=== PATIENT | male | born 1970 | race Caucasian/White ===

== ENCOUNTER 2023-04-16 15:57 | Outpatient (REF) | payer OTHER, SELFPAY ==
--- NOTE | ~2023-04-16 | XR_ITS ---
EXAMINATION: XR CHEST CLINICAL INFORMATION: Abnormal chest radiograph (not available). COMPARISON: None available. If/when outside comparison chest radiographs become available (requested), an addendum will be issued. TECHNIQUE: Frontal and lateral views of the chest were obtained. FINDINGS: The heart, great vessels, pulmonary vasculature and mediastinum are normal. The lungs show no focal infiltrate, effusion or pneumothorax. There is no acute osseous abnormality. XR/XR chest 2V IMPRESSION: No active cardiopulmonary disease.
== END 2023-04-16 15:58 | disposition home or self-care (01) ==
LOC: HO.LAB 15:57
PROVIDERS: PCP Internal Medicine; Visit Provider Internal Medicine
DX: Z00.00 Encounter for general adult medical examination without abnormal findings (principal); L81.8 Other specified disorders of pigmentation; R93.89 Abnormal findings on diagnostic imaging of other specified body structures
CPT/HCPCS: 71046

== ENCOUNTER 2023-04-19 08:32 | Outpatient (REF) | payer OTHER, SELFPAY ==
[2023-04-19 09:05] LABS: MANUAL DIFF FLAG NO
[2023-04-19 09:20] LABS: Basophils Percent Auto 0.6 % (0-2); Eosinophils Absolute Auto 0.1 X10*3/uL (0.0-0.4); Eosinophils Percent Auto 2.1 % (0-4); Hematocrit 43.3 % (42.0-52.0); Hemoglobin 14.1 g/dl (14.0-18.0); Imm Gran Abs Auto 0.01 X10*3/uL (0.00-0.03); Imm Gran Pct Auto 0.2 % (0.0-0.4); Lymphocytes Absolute Auto 1.2 X10*3/uL (1.2-4.9); Lymphocytes Percent Auto 22.1 % (20-40); Mean Corpuscular HGB Conc 32.6 g/dl (31.0-36.0); Mean Corpuscular Volume 88.9 fL (80.0-98.0); Mean Platelet Volume 9.9 fL (9.4-12.4); Monocytes Absolute Auto 0.4 X10*3/uL (0.1-1.2); Monocytes Percent Auto 8.1 % (2-11); Neutrophils Absolute Auto 3.5 x10*3/uL (2.0-8.3); Neutrophils Percent Auto 66.9 % (45-73); Platelet Count 214 X10*3/uL (160-400); Red Blood Count 4.87 X10*6/uL (4.60-5.80); Red Cell Distribution Width 13.5 % (11.0-16.0); White Blood Count 5.2 X10*3/uL (4.8-10.8)
[2023-04-19 09:46] LABS: Alanine Aminotransferase 12 U/L (0-40); Albumin Level 4.1 g/dL (3.5-5.0); Alkaline Phosphatase 98 U/L (39-117); Anion Gap 12 (12-20); Aspartate Amino Transferase 14 U/L (5-37); Bilirubin Total 0.5 mg/dL (0.0-1.0); Blood Urea Nitrogen 14 mg/dL (9-16); Calcium 11.5 mg/dL (8.4-10.2); Carbon Dioxide 25 mmol/L (22-29); Chloride 109 mmol/L (96-108); Cholesterol 164 mg/dL (<200); Estimated Glomerular Filt Rate > 60; Glucose Random 114 mg/dL (60-115); HDL Cholesterol 45 mg/dL (>40); LDL Cholesterol Calculated 106 mg/dL (<100); Potassium 4.5 mmol/L (3.3-5.1); Sodium 141 mmol/L (135-145); Total Protein 6.4 g/dL (6.5-8.0); Triglycerides 65 mg/dL (<150)
[2023-04-19 10:15] LABS: Prostate Specific Antigen Scr 10.19 ng/mL (<0.05-4.0)
== END 2023-04-19 08:33 | disposition home or self-care (01) ==
LOC: HO.LAB 08:32
PROVIDERS: PCP Internal Medicine; Visit Provider Internal Medicine
DX: Z00.00 Encounter for general adult medical examination without abnormal findings (principal); L81.8 Other specified disorders of pigmentation; E78.00 Pure hypercholesterolemia, unspecified; Z13.31 Encounter for screening for depression; Z12.5 Encounter for screening for malignant neoplasm of prostate; Z20.2 Contact with and (suspected) exposure to infections with a predominantly sexual mode of transmission
CPT/HCPCS: 36415; 80053; 80061; 84153; 85025

== ENCOUNTER 2023-05-30 15:20 | Outpatient (AMB) | payer OTHER, SELFPAY ==
--- NOTE | 2023-05-30 15:25 | MHC.OFFVIS ---
Intake Intake Visit Reasons: Elevated PSA Intake Note: New Patient presents for initial visit for elevated psa (psa 10.19) Urology Medications: none Blood Thinner: none Deicer Tester Required: No Accompanied by: Unknown Allergies penicillin V Allergy (Unknown, Unverified 05/30/23 16:13) Unknown Penicillins [PCN] Allergy (Unknown, Unverified 05/30/23 16:13) SWELLING Medication List - Last Reconciled 05/30/23 by MARYANN SinghP-BC sulfamethoxazole-trimethoprim 800-160 mg (Bactrim DS) 1 tab PO BID 14 days HPI HPI Comments History of Present Illness Details Filemon is a very pleasant 53-year-old male patient of Dr. Riley is accompanied by his significant other at today's office visit. He presents to the office today as a new patient for an elevated PSA. When asked he reports to be doing and feeling well. He reports having had labs performed with PCP at which time he was noted to have an elevated PSA and recommendations were made for urology follow up for further assessment and evaluation. In review of patient chart it appears PSA 04/21--10.2. When asked he does endorse to a weak urinary stream over the last few years. However, he denies urinary urgency, urinary frequency, incontinence, nocturia, hematuria, dysuria, foul smelling urine, flank pain, fever, and or chills. He is happy with his current voiding parameters. Discussed at length potential causes of elevated PSA. LEIGH performed boggy prostate noted no masses or nodules palpated. Discussed treatment for prostatitis with redraw of PSA in 6 weeks. Discussed obtaining retroperitoneal ultrasound for further assessment evaluation. In review of patient's chart PCP notes noted previous history of prostate biopsy in 2013 with urology. However, patient is unsure if he had further workup with MRI and or prostate biopsy. It is unclear. It is also unclear were patient previously followed up with Urology. He is unsure if he followed up with [facility] when Urology verses [facility] Urology. Discussed attempting to obtain previous urology records for continuity of care. When asked he denies any known family history of prostate cancer. He otherwise offers no issues or concerns at this time. Review of Systems Const All systems reviewed & are unremarkable except as noted in HPI and below Physical Exam Const General: cooperative, healthy appearing, comfortable, no acute distress, well developed, alert and awake Nutritional Appearance: thin Orientation/consciousness: patient oriented x3 Limitations: no limitations HEENT Head: Yes normal to inspection, Yes normocephalic and Yes atraumatic Ears: hearing grossly normal bilaterally Eyes General: appearance normal, both eyes and all related structures Neck Neck: Yes normal visual inspection and Yes trachea midline Chest Chest palpation & inspection: normal inspection of the chest Resp Effort & Inspection: normal respiratory effort and able to speak in complete sentences Cardio Rate: regular rate GI Inspection: Yes normal to inspection Rectal Exam - Male: Yes visual inspection normal, Yes normal sphincter tone and Yes prostate abnormal (boggy prostate noted ) General: Yes no CVA tenderness Back/Spine/Pelvis Back: no CVA tenderness Skin General skin exam: no rashes or lesions noted Neuro General: patient oriented x3 Extrem General: Yes normal to inspection Psych Appearance: grossly normal and well kempt Mental Status: mental status grossly normal Speech and movement: Normal speech and movement present and Clear speech present Affect: normal affect Attitude: cooperative Thought process: Normal thought process present Thought content: Normal thought content present Insight: Good insight present (Psych) Judgement: Good judgement present (Psych) Results AMB Urinalysis, Automated UA Leukoctes 0 Amilcar/uL Last Edit by [employer] on 05/30/23 15:39 UA Nitrite Negative Last Edit by [employer] on 05/30/23 15:39 UA Urobilinogen 0.2 mg/dL Last Edit by [employer] on 05/30/23 15:39 UA Protein 0 mg/dL Last Edit by [employer] on 05/30/23 15:39 UA pH 7.5 Last Edit by [employer] on 05/30/23 15:39 UA Blood 0 Yosvany/uL Last Edit by [employer] on 05/30/23 15:39 UA Specific [place] 1.015 Last Edit by [employer] on 05/30/23 15:39 UA Ketone Negative Last Edit by [employer] on 05/30/23 15:39 UA Bilirubin 0 mg/dL Last Edit by [employer] on 05/30/23 15:39 UA Glucose 0 mg/dL Last Edit by [employer] on 05/30/23 15:39 Results Reviewed Results Reviewed: Laboratory Last Values Urine pH (Auto) 7.5 05/30/23 15:27 Specific [place] (Auto) 1.015 05/30/23 15:27 Urine Protein (Auto) 0 mg/dL 05/30/23 15:27 Glucose (UA)(Auto) 0 mg/dL 05/30/23 15:27 Urine Ketones (Auto) Negative 05/30/23 15:27 Urine Blood (Auto) 0 Yosvany/uL 05/30/23 15:27 Urine Nitrite (Auto) Negative 05/30/23 15:27 Urine Bilirubin (Auto) 0 mg/dL 05/30/23 15:27 Urine Urobilinogen (Auto) 0.2 mg/dL 05/30/23 15:27 Leukocyte Esterase (Auto) 0 Amilcar/uL 05/30/23 15:27 Assessment & Plan Assessment & Plan (1) Elevated PSA: Code(s): R97.20 - Elevated prostate specific antigen [PSA] (2) Weak urinary stream: Code(s): R39.12 - Poor urinary stream (3) Prostatitis: Code(s): N41.9 - Inflammatory disease of prostate, unspecified Plan In office urinalysis results reviewed with the patient today; as noted above. Discussed at length potential causes of elevated PSA. LEIGH performed boggy prostate noted. Discuss treatment for prostatitis. Start Bactrim as discussed and prescribed. Will obtain retroperitoneal ultrasound for further assessment evaluation. Will obtain redraw of PSA in 6 weeks. Discussed possible prostate biopsy in the near future if PSA continues to be elevated Discussed, educated, and encouraged on the importance of drinking plenty of water daily. Follow-up in 2 months with imaging and labs to be completed prior; or sooner with any issues, concerns, and or questions. Orders: Orders AMB Urinalysis Automated 05/30/23 Z13.9 - Encounter for screening, unspecified US retroperitoneal comp 05/30/23 R39.12 - Poor urinary stream, R97.20 - Elevated prostate specific antigen [PSA] Prostate Specific Antigen 6 Weeks R97.20 - Elevated prostate specific antigen [PSA] Medications: New sulfamethoxazole-trimethoprim 800-160 mg (Bactrim DS) 1 tab PO BID 14 days 28 tabs 0RF N39.0 - Urinary tract infection, site not specified Patient Instructions: The patient had an opportunity to ask questions regarding the treatment plan. All questions were answered. Physical exam, labs, and imaging were discussed and reviewed in detail. As well as risks, benefits, and discussion of treatment choices. No major barriers to understanding were identified. The patient expressed understanding and agreement with the above treatment plan. The patient was made aware they should contact our office by phone for worsening of their current condition, the appearance of new symptoms, or with any questions or concerns. Compliance is encouraged with any medications and follow up testing that is ordered. It is a privilege to be allowed the opportunity to participate in? your urological care.? Again, if you have any questions or concerns If you have any questions or concerns please do not hesitate to contact me. The office is [phone]. This note is constructed using voice recognition software. While every effort has been made to ensure accuracy carbon coater machine operator errors may have been included. Yours sincerely, JOSELO Singh Coding Level of Care Code New Pt Level 4 (99928) Diagnoses Elevated PSA R97.20 Weak urinary stream R39.12 Prostatitis N41.9
== END 2023-05-30 16:14 | disposition home or self-care (01) ==
PROVIDERS: PCP Internal Medicine; Visit Provider Nurse Practitioner Family
DX: R97.20 Elevated prostate specific antigen [PSA] (principal); R39.12 Poor urinary stream; N41.9 Inflammatory disease of prostate, unspecified
CPT/HCPCS: 99204

== ENCOUNTER → 2023-05-30 15:20 | Outpatient (BNVA) | payer OTHER, SELFPAY | PROVIDERS: PCP Internal Medicine; Visit Provider Nurse Practitioner Family | DX: R97.20 Elevated prostate specific antigen [PSA] (principal); R39.12 Poor urinary stream; N41.9 Inflammatory disease of prostate, unspecified | CPT/HCPCS: 81003 ==

== ENCOUNTER 2023-07-04 12:37 | Outpatient (REF) | payer OTHER, SELFPAY | END 2023-07-04 12:38 | disposition home or self-care (01) | LOC: HO.US 12:37 | PROVIDERS: PCP Internal Medicine; Visit Provider Nurse Practitioner Family | DX: R97.20 Elevated prostate specific antigen [PSA] (principal); R39.12 Poor urinary stream | CPT/HCPCS: 76770 ==

== ENCOUNTER 2023-08-07 13:36 | Outpatient (REF) | payer OTHER, SELFPAY ==
[2023-08-07 15:16] LABS: Prostate Specific Antigen 12.73 ng/mL (<0.05-4.0)
== END 2023-08-07 13:37 | disposition home or self-care (01) ==
LOC: HO.LAB 13:36
PROVIDERS: Visit Provider Nurse Practitioner Family
DX: Z12.5 Encounter for screening for malignant neoplasm of prostate (principal); R97.20 Elevated prostate specific antigen [PSA]
CPT/HCPCS: 36415; 84153

== ENCOUNTER 2023-09-18 14:28 | Outpatient (AMB) | payer OTHER, SELFPAY ==
--- NOTE | 2023-09-18 14:28 | MHC.OFFVIS ---
Intake Intake Visit Reasons: 2M/US Intake Note: Patient presents for follow up visit for elevated psa and ultrasound results Urology Medications: none Blood Thinner: none Circuit Board Drafter Required: No Accompanied by: Unknown Allergies penicillin V Allergy (Unknown, Unverified 09/18/23 14:42) Unknown Penicillins [PCN] Allergy (Unknown, Unverified 09/18/23 14:42) SWELLING Medication List - Last Reconciled 09/18/23 by JOSELO Singh No Known Home Meds HPI HPI Comments History of Present Illness Details Filemon is a very pleasant 53-year-old male patient of Dr. Riley is accompanied by his significant other at today's office visit. He is being followed up on today via video telehealth for his elevated PSA. In discussion with the patient today reports to be doing and feeling well. Recent PSA results reviewed with the patient today. PSA: 04/21 10.2, 08/23 12.7 He has a previous history of a negative prostate biopsy in 2013. Recent retroperitoneal ultrasound results reviewed with the patient today. Bilateral kidneys with no calculi or hydronephrosis. A benign lower pole 0.7 cm Bosniak class left renal cyst is noted which requires no additional follow-up imaging per radiology report. The bladder is well distended and normal. Bilateral ureteral jets are demonstrated. Pre void bladder volume is approximately 175 mL. Postvoid bladder volume is approximately 5 mL. Prostate volume is approximately 70 mL. When asked he does endorse to a weak urinary stream over the last few years. However, he denies urinary urgency, urinary frequency, incontinence, nocturia, hematuria, dysuria, foul smelling urine, flank pain, fever, and or chills. He is happy with his current voiding parameters. Discussed at length potential causes of elevated PSA. During last office visit LEIGH was performed and prostate was noted to be boggy at which time full strength Bactrim was prescribed for 2 weeks. He has since completed antibiotic therapy however PSA continues to rise. Discussed attempting to obtain previous urology records for continuity of care. When asked he denies any known family history of prostate cancer. He otherwise offers no issues or concerns at this time. Review of Systems Const All systems reviewed & are unremarkable except as noted in HPI and below Physical Exam Const General: cooperative, healthy appearing, comfortable, no acute distress, well developed, alert and awake Orientation/consciousness: patient oriented x3 Resp Effort & Inspection: normal respiratory effort and able to speak in complete sentences Neuro General: patient oriented x3 Psych Appearance: grossly normal and well kempt Mental Status: mental status grossly normal Speech and movement: Normal speech and movement present and Clear speech present Affect: normal affect Attitude: cooperative Thought process: Normal thought process present Thought content: Normal thought content present Insight: Fair insight present (Psych) Judgement: Fair judgement present (Psych) Results Reviewed Results Reviewed: Date of Service: 07/04/23 EXAMINATION: US RETROPERITONEAL COMPLETE (RENAL) FINDINGS: RIGHT KIDNEY: 10.3 x 4.7 x 4.9 cm (SAG x AP x TRV). The kidney is normal in size, contour, and echogenicity. Renal cortical thickness is normal. No calculi or focal parenchymal lesions. No hydronephrosis. LEFT KIDNEY: 10.4 x 4.2 x 4.8 cm (SAG x AP x TRV). The kidney is normal in size, contour, and echogenicity. Renal cortical thickness is normal. No renal calculi or hydronephrosis. A benign lower pole 0.7 cm Bosniak class I renal cyst is noted which requires no additional imaging or follow up. No solid renal masses are seen. BLADDER: Well distended and normal. Bilateral ureteral jets are demonstrated. Prevoid bladder volume is 175.7 mL. Postvoid bladder volume is 6.5 mL. Enlarged prostate, volume 70.3 mL. IMPRESSION: BPH with 70.3 mL prostate but only 6.5 mL post void residual. Assessment & Plan Assessment & Plan (1) Weak urinary stream: Code(s): R39.12 - Poor urinary stream (2) Elevated PSA: Code(s): R97.20 - Elevated prostate specific antigen [PSA] Plan Recent PSA results reviewed with the patient today; as noted above. Recent retroperitoneal ultrasound results reviewed with the patient today; as noted above. Discussed at length potential causes for elevated PSA. Discussed further workup with prostate biopsy verses MRI of the prostate verses surveillance monitoring; risks and benefits of these interventions were discussed at length. Prescription provided and Education discussed regarding specific instructions of antibiotic therapy prior to prostate procedure. Will schedule for prostate biopsy. Follow-up status post prostate biopsy per doctors orders; or sooner with any issues, concerns, and or questions. Medications: New levofloxacin take 1 tablet day before procedure, 1 tablet day of procedure and 1 tablet day after procedure 500 mg PO daily 3 days 3 tabs 0RF Patient Instructions: The patient had an opportunity to ask questions regarding the treatment plan. All questions were answered. Physical exam, labs, and imaging were discussed and reviewed in detail. As well as risks, benefits, and discussion of treatment choices. No major barriers to understanding were identified. The patient expressed understanding and agreement with the above treatment plan. The patient was made aware they should contact our office by phone for worsening of their current condition, the appearance of new symptoms, or with any questions or concerns. Compliance is encouraged with any medications and follow up testing that is ordered. It is a privilege to be allowed the opportunity to participate in? your urological care.? Again, if you have any questions or concerns If you have any questions or concerns please do not hesitate to contact me. The office is [phone]. This note is constructed using voice recognition software. While every effort has been made to ensure accuracy car ferrier errors may have been included. Yours sincerely, Amaris Solis [facility] Telehealth Telehealth Location of provider rendering services: practice address Location of patient: address on file Patient Identification confirmed using: Name, : Yes Telehealth method: video Patient verbally consented to treatment: Yes Patient verbally consented to billing insurance company: Yes Patient informed of any privacy concerns related to visit: Yes Minutes spent on Phone/Video with Pt.: 30 Coding Level of Care Code Est Pt Level 4 (45156) Diagnoses Weak urinary stream R39.12 Elevated PSA R97.20
== END 2023-09-18 14:53 | disposition home or self-care (01) ==
LOC: HO.HUSH 14:28
PROVIDERS: PCP Internal Medicine; Visit Provider Nurse Practitioner Family
DX: R39.12 Poor urinary stream (principal); R97.20 Elevated prostate specific antigen [PSA]
CPT/HCPCS: 99214

== ENCOUNTER → 2023-09-18 14:28 | Outpatient (BNVA) | payer OTHER, SELFPAY | PROVIDERS: PCP Internal Medicine; Visit Provider Nurse Practitioner Family ==

== ENCOUNTER 2024-04-24 07:07 | Outpatient (REF) | payer OTHER, SELFPAY ==
[2024-04-24 08:18] LABS: Alanine Aminotransferase 24 U/L (0-40); Albumin Level 4.3 g/dL (3.5-5.0); Alkaline Phosphatase 112 U/L (39-117); Anion Gap 9 (12-20); Aspartate Amino Transferase 19 U/L (5-37); Bilirubin Total 0.6 mg/dL (0.0-1.0); Blood Urea Nitrogen 12 mg/dL (9-16); Calcium 12.4 mg/dL (8.4-10.2); Carbon Dioxide 26 mmol/L (22-29); Chloride 113 mmol/L (96-108); Estimated Glomerular Filt Rate > 60; Glucose Random 115 mg/dL (60-115); Phosphorus 1.8 mg/dL (2.7-4.5); Potassium 4.6 mmol/L (3.3-5.1); Sodium 143 mmol/L (135-145); Total Protein 6.7 g/dL (6.5-8.0)
[2024-04-24 08:21] LABS: Parathyroid Hormone Intact 633.2 pg/mL (8.7-77.1)
[2024-04-24 08:36] LABS: Prostate Specific Antigen Scr 13.09 ng/mL (<0.05-4.0)
== END 2024-04-24 07:08 | disposition home or self-care (01) ==
LOC: HO.LAB 07:07
PROVIDERS: PCP Internal Medicine; Visit Provider Internal Medicine
DX: Z00.00 Encounter for general adult medical examination without abnormal findings (principal); D48.5 Neoplasm of uncertain behavior of skin; E83.52 Hypercalcemia; R97.20 Elevated prostate specific antigen [PSA]; Z13.31 Encounter for screening for depression; Z12.5 Encounter for screening for malignant neoplasm of prostate
CPT/HCPCS: 36415; 80053; 82306; 83970; 84100; 84153

== ENCOUNTER 2024-08-10 15:08 | Outpatient (AMB) | payer OTHER, SELFPAY ==
--- NOTE | 2024-08-10 15:14 | A.OFFVIS_ITS ---
Vital Signs 08/10/24 15:20 Height 5 ft 5.16 in Weight 139 lb 5.314 oz BMI 23.1 BP 108/70 Blood Pressure Location Rt brachial Position Sitting Pulse 97 Pulse Source Pulse Oximeter Pulse Oximetry (%) 99 Oxygen Delivery Method Room Air Intake Visit Reasons: Hypeparathyroid Intake Note: New patient present today for Hyper-parathyroid office visit. 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 Here today with Peri. He has clinical MEN1. Clinical MEN1 Hyperparathyroidism Was noted to have high calcium levels at the age of 15 years? Says he was in [place] Reports kidney stones has passed one every 5 years No abd pain, no increased urination, no constipation No fractures Labs from March 2023 show calcium level of 11.5 with albumin of 4.1, labs from March 2024 show calcium level of 12.4 with albumin of 4.3, corrected calcium 12.1, phosphorus low at 1.8, vitamin-D low at 12, PTH of 633. Normal kidney function. No diarrhea, has been having some intermittent acid reflux 1-2 episodes in the last 6 months . No vision changes. No headaches. sometimes feels pressures behind the eyes Some degree of erectile dysfunction. No weight changes. No easy bruising, no proximal muscle weakness. no lightheadedness , dizzines Not on medications other than vitamin D 1000 units daily. Since March 2024. Surgery history Polyp resection colonoscopy Small bowel obtsruction in 2014 He follows with the Urology for concerns of elevated PSA. 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, angiofibroma noted on the nose Laboratory Tests 04/19/23 04/24/24 09:03 07:44 Creatinine 0.99 1.01 Estimated GFR > 60 > 60 Calcium 11.5 H 12.4 H D Phosphorus 1.8 L PSA Screen 13.09 H 25-OH Vitamin D Total 12.0 L PTH Intact 633.2 H Laboratory Tests 04/19/23 04/24/24 09:03 07:44 Albumin 4.1 4.3 PFSH Medical History (Updated 08/10/24 @ 16:10 by Milady Dave MD) 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 Blood work from March 2024 showed calcium level was up at 12.4, with albumin of 4.3, corrected calcium would be 12.1 with a PTH level of 633 with normal kidney function, vitamin-D level low at 12. Given that elevated PTH in the degree of calcium level plus history of MEN1, we will refer him for parathyroid surgery to Dr. Elvin Jasso at [facility]. He has been on vitamin D 1000 units daily since March 2024, we will repeat vitamin-D levels. I will also check 24 hour urine calcium levels, he already has kidney stones, we will also check his bone density to assess for osteoporosis including forearm. I advised him to maintain good hydration to also help with lowering calcium levels. Patients with a MEN1 need parathyroid exploration because they often present with multi gland disease, regardless some guidelines recommend to obtain parathyroid imaging. I will also order a parathyroid scan. Plan: -ordered bone density scan including forearm -ordered nuclear medicine parathyroid scan -ordered repeat calcium, albumin, ionized calcium, PTH, phosphorus, magnesium, vitamin-D, kidney function levels -ordered 24 hour urine calcium and creatinine levels -referral placed to endocrine surgeon Dr. Elvin Jasso at [facility] (2) MEN1 (multiple endocrine neoplasia): Code(s): 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 Category: Medical Plan: Patient has clinical MEN1 given 2 first-degree relatives with MEN1 pathogenic variants in his presentation with hyperparathyroidism. I told him that it would be good for him to get genetic testing done, he also has a son, and I stressed to him importance of getting genetic testing done for the son as well. I discussed with him that care of MEN1 patient's should ideally be done at our multidisciplinary academic center where they see large volume of MEN1 patient's. I will find out where we can send him for a referral for an MEN1 specialist who can also evaluate him, I told him that he might need to be seen once a year and I can be his local pharmacy clerk, however ideally he should also see a MEN1 specialist where genetic testing can also be facilitated.. He does not have any history of pituitary or neuroendocrine tumors. He does have angiofibroma as on the neck. I will check a pituitary panel, he does not have any vision changes, no headaches. However we can consider getting a baseline MRI of the pituitary gl and. There is no set guidelines with how frequently we need to do imaging for neuroendocrine tumors, he does not have any symptoms of diarrhea or acid reflux. I will check a gastrin, VIP, chromogranin a level. We can also consider imaging his abdomen. Plan: -ordered pituitary panel -ordered neuroendocrine tumor markers -follow up in 4 weeks to discuss results Plan I spent 60 minutes in reviewing the record, seeing the patient and documenting in the medical record. Orders: Orders Calcium Today E21.3 - Hyperparathyroidism, unspecified, 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 Comprehensive Met. Panel Today E21.3 - Hyperparathyroidism, unspecified, 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 Calcium, Ionized Today E21.3 - Hyperparathyroidism, unspecified, 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 Calcium, 24 Hr Ur Today E21.3 - Hyperparathyroidism, unspecified, 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 Creatinine, 24 Hr Group Today E21.3 - Hyperparathyroidism, unspecified, 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 Phosphorus Today E21.3 - Hyperparathyroidism, unspecified, 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 Magnesium Today E21.3 - Hyperparathyroidism, unspecified, 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 Gastrin Today E21.3 - Hyperparathyroidism, unspecified, 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 Cortisol Random Today E21.3 - Hyperparathyroidism, unspecified, 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 Lutenizing Hormone Today E21.3 - Hyperparathyroidism, unspecified, E31.21 - Mul tiple endocrine neoplasia [MEN] type I Free T4 (Free Thyroxine) Today E21.3 - Hyperparathyroidism, unspecified, 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 Human Growth Hormone Today E21.3 - Hyperparathyroidism, unspecified, 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 NM parathyroid Today E21.3 - Hyperparathyroidism, unspecified Albumin Level Today E21.3 - Hyperparathyroidism, unspecified, 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 Thyroid Stimulating Hormone Today E21.3 - Hyperparathyroidism, unspecified, 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 Parathyroid Hormone Intact Today E21.3 - Hyperparathyroidism, unspecified, 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 Vitamin D 25-OH Total Today E21.3 - Hyperparathyroidism, unspecified, 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 Chromogranin A Today E21.3 - Hyperparathyroidism, unspecified, 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 Vasoactive Intestinal Polypept Today E21.3 - Hyperparathyroidism, unspecified, 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 Adrenocorticotropic Hormone Today E21.3 - Hyperparathyroidism, unspecified, 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 Testosterone, Free/Total Today E21.3 - Hyperparathyroidism, unspecified, 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 Sex Hormone Binding Globulin Today E21.3 - Hyperparathyroidism, unspecified, 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 IGF-1 (Somatomedin C) Today E21.3 - Hyperparathyroidism, unspecified, 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 Cortisol, Free 24Hr Urine Today E21.3 - Hyperparathyroidism, unspecified, 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 Prolactin Today E21.3 - Hyperparathyroidism, unspecified, 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 Follicle Stimulating Hormone Today E21.3 - Hyperparathyroidism, unspecified, 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 XR DEXA appendicular skeleton Today E21.3 - Hyperparathyroidism, unspecified Referrals General Surgery Referral E21.3 - Hyperparathyroidism, unspecified, 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 Patient Instructions: Do blood work fasting the same morning as you hand in the 24 hour urine collection 24 hr urine collection instructions You have been asked to collect your urine for 24 hours to assess for calcium excretion. You must choose a 24 hour period of time when you will be home. The morning of the first day, DISCARD the FIRST morning void and then note the time. You will collect every single void from then on for 24 hours. For example, if you wake up at 6am and urinate, flush down that void. You will then collect every drop of urine all day and all night through 6am the following day. You will urinate one last time at 6am for the collection. The jug of urine must be kept in the refrigerator until you bring it to the lab. If you do not hear from [facility] from Dr. Jasso's office withing the next 2 weeks please call our office to check the status if the referral during office hours Continue vitamin D as it is Do bone density scan ,someone will call you to schedule this Do parathyroid scan , someone will call you to schedule this Coding Level of Care Code New Pt Level 5 (77678) Complex EM visit Add On G2211 Diagnoses MEN1-related hyperparathyroidism E21.3 MEN1 (multiple endocrine neoplasia) E31.21 Time Spent (min) 60
[2024-08-10 15:20] VITALS: BP 108/70; PULSE 97; O2SAT 99; BMI 23.1
--- OUTSIDE RECORDS SUMMARY | 2024-08-10 15:56 | XMS_ITS | Continuity of Care Document ---
Author Organization [facility] Address [address] [place] [address]- Care Team Providers Care Single Stayer Operator Name Role Phone Rosemary WOODS, Emili Lozano Primary Care Physician [id number] Date(s): 12/12/23 - 07/23/24 [facility] [address], [place] [address] Discharge Disposition: A-D/C Home Attending Physician: Ronnie Bains MD Admitting Physician: Ronnie Bains MD Referring Physician: Bud Moser MD Encounter Type: Disch Recurring OP Allergies, Adverse Reactions, Alerts Substance Criticality Severity Reaction Reaction Severity Status penicillins Active Medications bactrim bactrim, By Mouth, Refills 0, Maintenance, 11/09/19 3:23:00 PM EDT, Supply Start Date: 11/09/19 Status: Ordered Repeat number: 1 Clindamycin By Mouth, Maintenance, 11/09/19 3:27:00 PM EDT Start Date: 11/09/19 Status: Ordered Repeat number: 1 Dulcolax 5 mg oral enteric coated tablet 4 tablet = 20 mg, By Mouth, Once, take all 4 tablets at 2pm the day before your procedure, # 4 tablet, 0 Refills, Soft Stop, 02/06/24 9:07:00 AM EDT, [facility]/pharmacy #[id number], Partial fill upon patient request if the prescription is for a schedule II opioid drug., 159, cm, 12/31/23 11:56:00 EDT, Height Start Date: 02/06/24 Status: Ordered Quantity: 4.0 Unit: tablet Repeat number: 1 MiraLax oral powder for reconstitution See Instructions, MIX ENTIRE CONTENTS INTO 64 OUNCES OF GATORADE AND DRINK INSTRUCTED IN THE BOWEL PREP INSTRUCTION SHEET, # 255 Gm, 0 Refills, Maintenance, 02/06/24 9:07:00 AM EDT, [facility]/pharmacy #[id number], Partial fill upon patient request if the prescription is for a schedule II opioid drug., MIX ENTI RE CONTENTS INTO 64 OUNCES OF GATORADE AND DRINK INSTRUCTED IN THE BOWEL PREP INSTRUCTION SHEET,159, cm, 12/31/23 11:56:00 EDT, Height Start Date: 02/06/24 Status: Ordered Quantity: 255.0 Unit: g Repeat number: 1 Naproxen By Mouth, 0 Refills, Maintenance, 11/09/19 3:20:00 PM EDT Start Date: 11/09/19 Status: Ordered Repeat number: 1 Social History Social History Type Response Smoking Status Never smoker entered on: 05/27/14 Sex Sex Representation Male (finding) Patient Care team information Care Team Personnel Name: Emili Riley MD Position: [facility] Outreach Member Role: PCP Address: [address] [place] [address] [address] [place] [address]- Telecom: Name: Layla Lua NP Position: [facility] Associate Professional Member Role: Primary Care Nurse Address: [address] [place] [address] Drive [address] [place] [address]- Telecom: Care Team Related Persons Name: SHELLEY DELATORRE Name: ANUSHA TIRADO Insurance Providers Guarantor name: SUSAN Health Plan Information #: 1 Payer: [employer] [facility] Member Number: [id number] Policy Number: NA Group Number: [id number] Health Plan Information #: 2 Payer: [employer] FF NON [employer] HMO Member Number: [id number] Policy Number: NA Group Number: [id number]
== END 2024-08-10 16:24 | disposition home or self-care (01) ==
PROVIDERS: PCP Internal Medicine; Visit Provider Student in an Organized Health Care Education/Training Program
DX: E21.3 Hyperparathyroidism, unspecified (principal); E31.21 Multiple endocrine neoplasia [MEN] type I
CPT/HCPCS: 99205

== ENCOUNTER → 2024-08-10 15:08 | Outpatient (BNVA) | payer OTHER, SELFPAY | PROVIDERS: PCP Internal Medicine; Visit Provider Student in an Organized Health Care Education/Training Program ==

== ENCOUNTER 2024-08-14 08:06 | Outpatient (REF) | payer OTHER, SELFPAY ==
[2024-08-14 09:28] LABS: Creatinine, mg/dL 99.14
[2024-08-14 09:51] LABS: Alanine Aminotransferase 25 U/L (0-40); Albumin Level 4.2 g/dL (3.5-5.0); Alkaline Phosphatase 132 U/L (39-117); Anion Gap 9 (12-20); Aspartate Amino Transferase 24 U/L (5-37); Bilirubin Total 0.6 mg/dL (0.0-1.0); Blood Urea Nitrogen 10 mg/dL (9-16); Calcium 11.8 mg/dL (8.4-10.2); Carbon Dioxide 24 mmol/L (22-29); Chloride 113 mmol/L (96-108); Estimated Glomerular Filt Rate > 60; Glucose Random 107 mg/dL (60-115); Phosphorus 2.1 mg/dL (2.7-4.5); Potassium 4.4 mmol/L (3.3-5.1); Sodium 142 mmol/L (135-145); Total Protein 6.8 g/dL (6.5-8.0)
[2024-08-14 10:14] LABS: Free T4 (Free Thyroxine) 1.09 ng/dL (0.71-1.85); Thyroid Stimulating Hormone 2.47 uIU/mL (0.32-4.0); Vitamin D 25-OH Total 30.3 ng/mL (>30)
[2024-08-14 10:34] LABS: Parathyroid Hormone Intact 487.8 pg/mL (8.7-77.1)
[2024-08-14 10:46] LABS: Cortisol Random 11.8 ug/dL
[2024-08-14 11:52] LABS: Creatinine, 24Hr Urine 1.3 G/Day (1.0-2.0); Total Volume 24 Hour Urine 1350 mL
[2024-08-16 02:04] LABS: Follicle Stimulating Hormone 8.5 mIU/mL (1.4-12.8); Lutenizing Hormone 3.7 mIU/mL (1.5-9.3); Prolactin 6.4 ng/mL (2.0-18.0); Sex Hormone Binding Globulin 35 nmol/L (10-50)
[2024-08-16 13:48] LABS: Calcium, Ionized 6.6 mg/dL (4.7-5.5)
[2024-08-16 14:29] LABS: Human Growth Hormone <0.1 ng/mL (< OR = 7.1)
[2024-08-16 16:13] LABS: Calcium, 24 Hr Urine 324 mg/24 h; Calcium/Creatinine Ratio 267 mg/g creat (30-210); Creatinine 24Hr Urine 1.22 g/24 h (0.50-2.15)
[2024-08-19 16:04] LABS: Testosterone, Free 141.2 pg/mL (35.0-155.0); Testosterone, Total 440 ng/dL (250-1100)
[2024-08-19 16:42] LABS: Adrenocorticotropic Hormone 23 pg/mL (6-50)
[2024-08-20 12:48] LABS: IGF-1 (Somatomedin C) 143 ng/mL (50-317); IGF-1 Z Score (Male) 0.1 SD (-2.0 - +2.0)
[2024-08-21 16:02] LABS: Cortisol Free, 24 Hr Urine 23.1 mcg/24 h (4.0-50.0); Creatinine, 24 Hr Urine 1.37 g/24 h (0.50-2.15); Total Volume, 24 Hr Urine 1350 mL
[2024-08-21 20:43] LABS: Gastrin 34 pg/mL (<=100)
[2024-08-23 18:27] LABS: Chromogranin A 501 ng/mL (ADULTS: <311)
== END 2024-08-14 08:07 | disposition home or self-care (01) ==
LOC: HO.LAB 08:06
PROVIDERS: PCP Internal Medicine; Visit Provider Student in an Organized Health Care Education/Training Program
DX: E21.3 Hyperparathyroidism, unspecified (principal); E31.21 Multiple endocrine neoplasia [MEN] type I
CPT/HCPCS: 36415; 80053; 82024; 82306; 82330; 82340; 82530; 82533; 82570; 82941; 83001; 83002; 83003; 83735; 83970; 84100; 84146; 84270; 84305; 84402; 84403; 84439; 84443; 84586; 86316

== ENCOUNTER → 2024-09-07 10:28 | Outpatient (REF) | payer OTHER, SELFPAY ==
--- NOTE | ~2024-09-07 | NM_ITS ---
EXAMINATION: Nuclear medicine parathyroid SPECT with CT. CLINICAL INDICATION: Hyperparathyroidism. Calcium- 11.8. PTH- 487.8 COMPARISON: None. TECHNIQUE: Following intravenous administration of 30 mCi of technetium 99 and sestamibi, imaging over the neck was obtained at 20 minutes and 2 hours. At 2 hours nuclear medicine SPECT and a CT SPECT was performed. Color perfusion was performed on a separate workstation and a little for interpretation. FINDINGS: I 20 minutes imaging there is normal activity seen in the right thyroid lobe. There is focal increased activity seen in the left mid and lower pole of the left thyroid gland.. At 2 hour imaging the right thyroid in the left upper lobe thyroid gland has significantly washed out and has almost no activity. There is persistent increased activity seen in the mid to lower pole left thyroid lobe best visualized on the SPECT study in the left fusion study. On CT imaging is a hypodense exophytic nodule posterior to mid and lower pole measuring 1.6 x 1.7 cm and approximately 2.5 cm in craniocaudad length.. NM/NM parathyroid SPECT w CT IMPRESSION: Large left parathyroid adenoma posterior to mid and lower pole left thyroid gland. It measures approximate 1.6 x 1.7 x 2.5 cm. Electronically signed by: Parvez Gracia MD 09/07/2024 04:34 PM EDT
== END ==
LOC: HO.NUCMED 10:28
PROVIDERS: PCP Internal Medicine; Visit Provider Student in an Organized Health Care Education/Training Program
DX: E21.3 Hyperparathyroidism, unspecified (principal); E31.21 Multiple endocrine neoplasia [MEN] type I
CPT/HCPCS: 78072; A9500

== ENCOUNTER → 2024-09-07 10:30 | Outpatient (BNV) | payer OTHER, SELFPAY | PROVIDERS: PCP Internal Medicine; Visit Provider Radiology Diagnostic Radiology | DX: E21.3 Hyperparathyroidism, unspecified (principal); E31.21 Multiple endocrine neoplasia [MEN] type I | CPT/HCPCS: 78072 ==

== ENCOUNTER 2024-09-15 15:33 | Outpatient (AMB) | payer OTHER, SELFPAY ==
--- NOTE | 2024-09-15 15:33 | A.OFFVIS_ITS ---
Vital Signs 09/15/24 15:35 Height 5 ft 5.16 in Weight 138 lb 3.677 oz BMI 22.9 BP 128/84 Blood Pressure Location Rt brachial Position Sitting Pulse 95 Pulse Source Pulse Oximeter Pulse Oximetry (%) 98 Oxygen Delivery Method Room Air Intake Visit Reasons: 30 min Intake Note: Patient present today for Hyperparathyroidism follow up visit. 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 Here today with Peri. He has clinical MEN1. Clinical MEN1 Hyperparathyroidism Was noted to have high calcium levels at the age of 15 years? Says he was in [place] Reports kidney stones has passed one every 5 years No abd pain, no increased urination, no constipation No fractures Labs from March 2023 show calcium level of 11.5 with albumin of 4.1, labs from March 2024 show calcium level of 12.4 with albumin of 4.3, corrected calcium 12.1, phosphorus low at 1.8, vitamin-D low at 12, PTH of 633. Normal kidney function. No diarrhea, has been having some intermittent acid reflux 1-2 episodes in the last 6 months . No vision changes. No headaches. sometimes feels pressures behind the eyes Some degree of erectile dysfunction. No weight changes. No easy bruising, no proximal muscle weakness. no lightheadedness , dizzines Not on medications other than vitamin D 1000 units daily. Since March 2024. Surgery history Polyp resection colonoscopy Small bowel obtsruction in 2013 He follows with the Urology for concerns of elevated PSA. Family history Mother: hyperparathyroidism Julieta older sister: MEN1 pathogenic variant : from neuroendocrine tumors Basim rodgers sister: MEN1 pathogenic variant, had pancreatitis recently, had hyperparathyrodism 27 years old son, not been tested Never smoker No marijuana, no alcohol , no drug use Interval history 08/14/2024: Labs showed normal thyroid function, normal FSH, LH, prolactin, testosterone levels, IGF-1, cortisol and ACTH all done at 08:00. Normal vasoactive intestinal peptide polypeptide of 34, normal gastrin level of 34 chromogranin a level elevated to 501. Calcium level elevated to 11.8, albumin of 4.2, ionized calcium of 6.6. Vitamin-D of 30.3. Normal kidney function, noted to have hypercalciuria with 24 hour urine calcium elevated at 324 mg per 24 hours. 09/07/2024: Parathyroid SPECT with CT showed large left parathyroid adenoma posterior to mid and lower pole of left thyroid gland. Measuring 1.6 X 1.7 X 2.5 cm. 09/10/24: saw Dr. Jasso plan is for total or subtotal parathyroidectomy with autotransplantation , pending 4D CT scan of the parathyroids He is on vitamin-D 2000 units daily. 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, angiofibroma noted on the nose Laboratory Tests 04/19/23 04/24/24 09:03 07:44 Creatinine 0.99 1.01 Estimated GFR > 60 > 60 Calcium 11.5 H 12.4 H D Phosphorus 1.8 L PSA Screen 13.09 H 25-OH Vitamin D Total 12.0 L PTH Intact 633.2 H Laboratory Tests 04/19/23 04/24/24 09:03 07:44 Albumin 4.1 4.3 Laboratory Tests 04/24/24 08/14/24 08/14/24 07:44 08:00 08:25 Sodium 142 Potassium 4.4 Creatinine 0.90 Estimated GFR > 60 Calcium 12.4 H D 11.8 H Ionized Calcium 6.6 H Phosphorus 1.8 L 2.1 L Albumin 4.3 4.2 Vasoact Intest Polypep 34 25-OH Vitamin D Total 30.3 TSH 2.47 Free T4 1.09 FSH 8.5 Luteinizing Hormone 3.7 Prolactin 6.4 Total Testosterone 440 Fr Testosterone Dialys 141.2 Sex Hormone Bind Glob 35 Human Growth Hormone <0.1 Somatomedin-C 143 Somato-C Z-Score Male 0.1 PTH Intact 487.8 H Random Cortisol 11.8 ACTH 23 Urine Total Volume 1350 Ur 24 Hour Volume 1350 Ur Creatinine mg/dL 99.14 Ur Creatinine 24 Hour 1.37 Ur Calcium 24 Hr 324 H Calcium/Creat 24 Hr 267 H Ur Free Cortisol 24 Hr 23.1 Chromogranin A 501 H Laboratory Tests 08/14/24 08:25 Gastrin 34 EXAMINATION: Nuclear medicine parathyroid SPECT with CT. 09/07/24 CLINICAL INDICATION: Hyperparathyroidism. Calcium- 11.8. PTH- 487.8 COMPARISON: None. TECHNIQUE: Following intravenous administration of 30 mCi of technetium 99 and sestamibi, imaging over the neck was obtained at 20 minutes and 2 hours. At 2 hours nuclear medicine SPECT and a CT SPECT was performed. Color perfusion was performed on a separate workstation and a little for interpretation. FINDINGS: I 20 minutes imaging there is normal activity seen in the right thyroid lobe. There is focal increased activity seen in the left mid and lower pole of the left thyroid gland.. At 2 hour imaging the right thyroid in the left upper lobe thyroid gland has significantly washed out and has almost no activity. There is persistent increased activity seen in the mid to lower pole left thyroid lobe best visualized on the SPECT study in the left fusion study. On CT imaging is a hypodense exophytic nodule posterior to mid and lower pole measuring 1.6 x 1.7 cm and approximately 2.5 cm in craniocaudad length.. NM/NM parathyroid SPECT w CT IMPRESSION: Large left parathyroid adenoma posterior to mid and lower pole left thyroid gland. It measures approximate 1.6 x 1.7 x 2.5 cm. 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 Surgical History Hx of cholecystectomy Family History Mother Diabetes type 2 Sister Pancreatic cancer Cancer of kidney Sister Diabetes type 2 Physical Exam Vital Signs: Last Vital Signs Pulse 95 09/15/24 15:35 BP 128/84 09/15/24 15:35 Pulse Ox 98 09/15/24 15:35 Oxygen Delivery Method Room Air 09/15/24 15:35 BMI result Body Mass Index 22.9 Assessment & Plan Assessment & Plan (1) MEN1-related hyperparathyroidism: Code(s): E21.3 - Hyperparathyroidism, unspecified Category: Medical Plan: 54-year-old male with 2 sisters with pathogenic variance of MEN1, with him presenting with hyperparathyroidism, classifying him as clinical MEN1. Blood work from March 2024 showed calcium level was up at 12.4, with albumin of 4.3, corrected calcium would be 12.1 with a PTH level of 633 with normal kidney function, vitamin-D level low at 12. Given that elevated PTH in the degree of calcium level plus history of MEN1, he was referred for parathyroid surgery to Dr. Elvin Jasso at [facility]. He has been on vitamin D 1000 units daily since March 2024, repeat vitamin-D levels of 30.3 from July 2024. His vitamin-D dosage is currently 2000 units daily.. Repeat labs July 2024 again showed elevated calcium of 11.8, with albumin of 4.2, corrected calcium would be 11.6. Ionized calcium also elevated at 6.6, also noted to have hypercalciuria with 24 hour urine calcium of 324, he already has kidney stones, we will also check his bone density to assess for osteoporosis including forearm. He is pending an appointment for this on 09/22/2024. I advised him to maintain good hydration to also help with lowering calcium levels. Patients with a MEN1 need parathyroid exploration because they often present with multi gland disease, parathyroid SPECT with CT done on 09/07/2024 showed a large left parathyroid adenoma posterior to mid and lower pole of the left thyroid gland. Measuring 1.6 X 1.7 next 2.5 cm. He is also pending a 4D CT scan ordered by Dr. Elvin Jasso prior to parathyroid exploration with plan for either total or subtotal parathyroidectomy with autotransplantation of the parathyroid. He does not have a date for surgery yet. Plan: -pending bone density scan including forearm on 09/22/2024 -pending surgery for parathyroid exploration with Dr. Elvin Jasso at [facility], he is also getting a 40 CT scan prior to surgery -advised to maintain good hydration -continue vitamin-D 2000 units daily (2) MEN1 (multiple endocrine neoplasia): Code(s): 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 Category: Medical Plan: Patient has clinical MEN1 given 2 first-degree relatives with MEN1 pathogenic variants in his presentation with hyperparathyroidism. I told him that it would be good for him to get genetic testing done, he also has a son, and I stressed to him importance of getting genetic testing done for the son as well. I dis cussed with him that care of MEN1 patient's should ideally be done at our multidisciplinary academic center where they see large volume of MEN1 patient's. However at this time he did express diet is very difficult for him to go to [place], plus all of the cost and copies of current testing has been too much for him. He would prefer if we could take care of him locally. He does not have any history of pituitary or neuroendocrine tumors. He does have angiofibroma as on the neck. Pituitary panel done July 2024 showed normal labs. However we will get an MRI of the pituitary. he does not have any vision changes, no headaches. There is no set guidelines with how frequently we need to do imaging for neuroendocrine tumors, he does not have any symptoms of diarrhea or acid reflux. Normal gastrin and VIP levels, chromogranin a elevated in 500. We will do an MRI of the abdomen. Him and his son both need genetic testing. I told him that there is endocrine tumor genetic Department at [facility], again he would prefer to stay local. I told him that we can send a referral to [facility] genetics however they have a year- long weight, I will also place a referral to [facility] genetics and see whoever will se him first . Plan: -ordered MRI of the pituitary -ordered MRI of the abdomen -genetics referral placed to both [facility] and [facility] -follow up in 12 weeks Plan I spent 30 minutes in reviewing the record, seeing the patient and documenting in the medical record. Orders: Orders MR head/brain wo/w con Today 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 MR abdomen wo/w con Today 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 Referrals Genetics Referral E21.3 - Hyperparathyroidism, unspecified, 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 Genetics Referral E21.3 - Hyperparathyroidism, unspecified, 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 Patient Instructions: Do MRI of the pituitary gland which is in the brain , somebody is going to call you to schedule this Do MRI of the abdomen to look for neuroendocrine tumors, somebody is going to call you to schedule this Follow up with Dr. Elvin Jasso at [facility] for parathyroid surgery Wait to hear from either [facility] genetics or [facility] genetics, we sent a referral to both as you need genetic testing as well as your son for MEN1 Follow up in 12 weeks with me in clinic Coding Level of Care Code Est Pt Level 4 (65401) Complex EM visit Add On G2211 Diagnoses MEN1-related hyperparathyroidism E21.3 MEN1 (multiple endocrine neoplasia) E31.21 Time Spent (min) 30
[2024-09-15 15:35] VITALS: BP 128/84; PULSE 95; O2SAT 98; BMI 22.9
== END 2024-09-15 16:21 | disposition home or self-care (01) ==
LOC: HO.ENCR 15:33
PROVIDERS: PCP Internal Medicine; Visit Provider Student in an Organized Health Care Education/Training Program
DX: E21.3 Hyperparathyroidism, unspecified (principal); E31.21 Multiple endocrine neoplasia [MEN] type I
CPT/HCPCS: 99214

== ENCOUNTER → 2024-09-15 15:33 | Outpatient (BNVA) | payer OTHER, SELFPAY | PROVIDERS: PCP Internal Medicine; Visit Provider Student in an Organized Health Care Education/Training Program ==

== ENCOUNTER 2024-09-22 13:53 | Outpatient (REF) | payer OTHER, SELFPAY ==
--- NOTE | ~2024-09-22 | MM_ITS ---
EXAMINATION: DXA BONE DENSITY EXTREMITY HISTORY: Hyperparathyroidism TECHNIQUE: [employer] Dual energy absorptiometry (DEXA) of the lumbar spine, total left hip, femoral neck, and distal forearm was performed. COMPARISON: There are no prior studies for comparison. FINDINGS: The bone mineral density of the lumbar spine is 0.899 with a T-score of -2.7, and a Z-score of -1.9. This is indicative of osteoporosis. The bone mineral density of the left total hip is 0.759 with a T-score of -2.4, and a Z-score of -1.7. This is indicative of osteopenia. The bone mineral density of the left femoral neck is 0.644 with a T-score of -3.3, and a Z-score of -2.2. This is indicative of osteoporosis. The bone mineral density of the distal forearm is 0.771 with a T-score of -2.2, and a Z-score of -2.0. This is indicative of osteopenia. MM/XR DEXA appendicular skeleton IMPRESSION: Based on bone mineral density, and according to World Health Organization (WHO) criteria, the diagnosis is consistent with osteoporosis. All bone density values are in grams per centimeter squared (g/cm2). Statistically, 68% of repeat scans fall within 1 SD (+/- 0.010 g/cm2 for AP spine L1-L4) and 1 SD (+/- 0.012 g/cm2 for femur total) FRAX is a trademark of the [employer] [facility] [employer], a World Health Organization (WHO) Collaborating Center. Electronically signed by: Joni Abbott MD 09/22/2024 02:39 PM EDT
== END 2024-09-22 13:54 | disposition home or self-care (01) ==
LOC: HO.MAMMO 13:53
PROVIDERS: PCP Internal Medicine; Visit Provider Student in an Organized Health Care Education/Training Program
DX: E21.3 Hyperparathyroidism, unspecified (principal)
CPT/HCPCS: 77081

== ENCOUNTER → 2024-09-22 14:00 | Outpatient (BNV) | payer OTHER, SELFPAY | PROVIDERS: PCP Internal Medicine; Visit Provider Radiology Diagnostic Radiology | DX: M81.0 Age-related osteoporosis without current pathological fracture (principal); E21.3 Hyperparathyroidism, unspecified | CPT/HCPCS: 77081 ==

== ENCOUNTER 2024-09-26 17:50 | Outpatient (REF) | payer OTHER, SELFPAY ==
--- NOTE | ~2024-09-26 | MR_ITS ---
EXAMINATION: MR BRAIN PITUITARY PROTOCOL WITHOUT AND WITH CONTRAST CLINICAL INFORMATION: Multiple endocrine neoplasm. Concerning for possible [masses. COMPARISON: None available. TECHNIQUE: Multiplanar, multisequence MRI of the brain pituitary protocol was obtained before and after the intravenous administration of 3.2 mL gadolinium based without reported immediate complications. FINDINGS: The pituitary gland demonstrates normal morphology, size and enhancement pattern. The pituitary stalk is midline and measures less than 2 mm maximal thickness. The optic chiasm is intact and normal. The flow-void signal within the cavernous supracavernous segments of the ICAs is normal. No masses or signal abnormality in the cavernous sinuses. Bilateral multifocal patchy and punctate subcortical and deep white matter nonenhancing no restricted diffusion hyperintense T2 FLAIR signal involving centrum semiovale and davila radiata. No restricted diffusion within the brain parenchyma. There is mucosal thickening and restricted diffusion secretions within the right maxillary sinus. Craniocervical junction is intact. No enhancing lesion within the intra-axial or the extra-axial compartment of the cranium. MR/MR head/brain wo/w con IMPRESSION: No acute pituitary mass. Nonspecific nonenhancing no restricted diffusion White matter disease. There is a lengthy differential diagnostic considerations including demyelinating plaques on other etiologies. Acute on chronic right maxillary sinus disease. The possibility of fungal infection should be considered. Electronically signed by: Naldo Templeton MD 09/28/2024 01:22 PM EDT
[2024-09-26] MEDS: gadobutroL 7.5 ML VIAL IVPUSH (18:45)
== END 2024-09-26 17:51 | disposition home or self-care (01) ==
LOC: HO.MRI 17:50
PROVIDERS: PCP Internal Medicine; Visit Provider Student in an Organized Health Care Education/Training Program
DX: E31.21 Multiple endocrine neoplasia [MEN] type I (principal)
CPT/HCPCS: 70553; A9585

== ENCOUNTER → 2024-09-26 18:04 | Outpatient (BNV) | payer OTHER, SELFPAY | PROVIDERS: PCP Internal Medicine; Visit Provider Radiology Diagnostic Radiology | DX: E31.21 Multiple endocrine neoplasia [MEN] type I (principal) | CPT/HCPCS: 70553 ==

== ENCOUNTER → 2024-10-01 16:04 | Outpatient (BNV) | payer OTHER, SELFPAY | PROVIDERS: PCP Internal Medicine; Visit Provider Radiology Diagnostic Radiology | DX: E31.21 Multiple endocrine neoplasia [MEN] type I (principal) | CPT/HCPCS: 74183 ==

== ENCOUNTER 2024-10-01 16:05 | Outpatient (REF) | payer OTHER, SELFPAY ==
--- NOTE | ~2024-10-01 | MR_ITS ---
EXAMINATION: MRI Abdomen without and with contrast HISTORY: 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 COMPARISON: None TECHNIQUE: Axial in and out of phase T1-weighted gradient echo, axial diffusion weighted, and axial and coronal HASTE T2 with fat saturation images were obtained through the abdomen. Subsequently, fat suppressed axial and coronal T1-weighted images were obtained after the intravenous administration of 6 mL Gadavist. FINDINGS: There is no significant loss of signal intensity within the liver on opposed phase suggest steatosis. There is no enhancing liver mass. The hepatic and portal veins patent. There is no intrahepatic biliary ductal dilatation. The gallbladder is contracted. The common bile duct is normal in caliber. No intraluminal filling defects are identified to suggest choledocholithiasis. The spleen is unremarkable. There is no pancreatic mass. The pancreatic duct is normal in caliber. The right adrenal gland is unremarkable. There is a 1.4 cm left adrenal nodule. There is no loss of signal intensity within the nodule on opposed phase imaging. These findings are indeterminate for adenoma. There are subcentimeter cysts in both kidneys. There is no hydronephrosis. No retroperitoneal lymphadenopathy or ascites is identified in the upper abdomen. The visualized bones demonstrate normal marrow signal intensity. MR/MR abdomen wo/w con IMPRESSION: 1. No evidence of a pancreatic mass. 2. 1.4 cm left adrenal nodule which is indeterminate for adenoma. This could be further evaluated with adrenal protocol CT if indicated. Electronically signed by: Joni Abbott MD 10/04/2024 07:28 AM EDT
[2024-10-01] MEDS: gadobutroL 7.5 ML VIAL IVPUSH (17:00)
== END 2024-10-01 16:06 | disposition home or self-care (01) ==
LOC: HO.MRI 16:05
PROVIDERS: PCP Internal Medicine; Visit Provider Student in an Organized Health Care Education/Training Program
DX: E31.21 Multiple endocrine neoplasia [MEN] type I (principal)
CPT/HCPCS: 74183; A9585

== ENCOUNTER 2024-12-17 10:58 | Outpatient (AMB) | payer OTHER, SELFPAY ==
[2024-12-17 11:14] VITALS: BP 98/70; PULSE 63; O2SAT 97; BMI 22.9
--- NOTE | 2024-12-17 11:14 | MHC.OFFVIS ---
Vital Signs 12/17/24 11:14 Height 5 ft 5.16 in Weight 138 lb 0.15 oz BMI 22.9 BP 98/70 Blood Pressure Location Lt brachial Position Sitting Pulse 63 Pulse Source Pulse Oximeter Pulse Oximetry (%) 97 Oxygen Delivery Method Room Air Intake Visit Reasons: MEN1 (multiple endocrine neoplasia) Intake Note: Patient present today for MEN1 (multiple endocrine neoplasia) office visit. Credit Analysis Manager Required: No Accompanied by: Self / Same As Patient Allergies penicillin V Allergy (Unknown, Verified 12/17/24 11:18) Unknown Penicillins (PCN) Allergy (Unknown, Verified 12/17/24 11:18) SWELLING Medication List - Last Reconciled 12/17/24 by Milady Dave MD cholecalciferol (vitamin D3) 50 mcg PO DAILY HPI Comments Details: 54 years old male here today for follow up of primary hyperparathyroidism. Here today with Peri. He has clinical MEN1. Clinical MEN1 Hyperparathyroidism Was noted to have high calcium levels at the age of 15 years? Says he was in [place] Reports kidney stones has passed one every 5 years No abd pain, no increased urination, no constipation No fractures Labs from March 2023 show calcium level of 11.5 with albumin of 4.1, labs from March 2024 show calcium level of 12.4 with albumin of 4.3, corrected calcium 12.1, phosphorus low at 1.8, vitamin-D low at 12, PTH of 633. Normal kidney function. No diarrhea, has been having some intermittent acid reflux 1-2 episodes in the last 6 months . No vision changes. No headaches. sometimes feels pressures behind the eyes Some degree of erectile dysfunction. No weight changes. No easy bruising, no proximal muscle weakness. no lightheadedness , dizzines Not on medications other than vitamin D 1000 units daily. Since March 2024. Surgery history Polyp resection colonoscopy Small bowel obtsruction in 2013 He follows with the Urology for concerns of elevated PSA. Family history Mother: hyperparathyroidism Julieta older sister: MEN1 pathogenic variant : from neuroendocrine tumors Basim rodgers sister: MEN1 pathogenic variant, had pancreatitis recently, had hyperparathyrodism 27 years old son, not been tested Never smoker No marijuana, no alcohol , no drug use 08/14/2024: Labs showed normal thyroid function, normal FSH, LH, prolactin, testosterone levels, IGF-1, cortisol and ACTH all done at 08:00. Normal vasoactive intestinal peptide polypeptide of 34, normal gastrin level of 34 chromogranin a level elevated to 501. Calcium level elevated to 11.8, albumin of 4.2, ionized calcium of 6.6. Vitamin-D of 30.3. Normal kidney function, noted to have hypercalciuria with 24 hour urine calcium elevated at 324 mg per 24 hours. 09/07/2024: Parathyroid SPECT with CT showed large left parathyroid adenoma posterior to mid and lower pole of left thyroid gland. Measuring 1.6 X 1.7 X 2.5 cm. 09/10/24: saw Dr. Jasso plan is for total or subtotal parathyroidectomy with autotransplantation , has date for surgery 02/14/2025 at [facility]. He is on vitamin-D 2000 units daily. Interval history 12/17/2024 09/02/2024: Bone density showed osteoporosis of the spine with T-score of-2.7, and osteoporosis of the hip with a T-score of-3.3 at the left femoral neck. T-score of -2.4 at the left total hip. 10/01/2024: Abdominal MRI with and without contrast did not show any pancreatic mass, however showed a 1.4 cm left adrenal nodule which is indeterminate, as there was no loss of signal on opposed phase imaging. 09/26/2024: MRI pituitary with and without contrast did not show any pituitary mass. Showed some nonspecific findings of white matter disease, and some thickening in the right maxillary sinus, these nonspecific findings were conveyed to his PCP. 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, angiofibroma noted on the nose Laboratory Tests 04/19/23 04/24/24 09:03 07:44 Creatinine 0.99 1.01 Estimated GFR > 60 > 60 Calcium 11.5 H 12.4 H D Phosphorus 1.8 L PSA Screen 13.09 H 25-OH Vitamin D Total 12.0 L PTH Intact 633.2 H Laboratory Tests 04/19/23 04/24/24 09:03 07:44 Albumin 4.1 4.3 Laboratory Tests 04/24/24 08/14/24 08/14/24 07:44 08:00 08:25 Sodium 142 Potassium 4.4 Creatinine 0.90 Estimated GFR > 60 Calcium 12.4 H D 11.8 H Ionized Calcium 6.6 H Phosphorus 1.8 L 2.1 L Albumin 4.3 4.2 Vasoact Intest Polypep 34 25-OH Vitamin D Total 30.3 TSH 2.47 Free T4 1.09 FSH 8.5 Luteinizing Hormone 3.7 Prolactin 6.4 Total Testosterone 440 Fr Testosterone Dialys 141.2 Sex Hormone Bind Glob 35 Human Growth Hormone <0.1 Somatomedin-C 143 Somato-C Z-Score Male 0.1 PTH Intact 487.8 H Random Cortisol 11.8 ACTH 23 Urine Total Volume 1350 Ur 24 Hour Volume 1350 Ur Creatinine mg/dL 99.14 Ur Creatinine 24 Hour 1.37 Ur Calcium 24 Hr 324 H Calcium/Creat 24 Hr 267 H Ur Free Cortisol 24 Hr 23.1 Chromogranin A 501 H Laboratory Tests 08/14/24 08:25 Gastrin 34 EXAMINATION: Nuclear medicine parathyroid SPECT with CT. 09/07/24 CLINICAL INDICATION: Hyperparathyroidism. Calcium- 11.8. PTH- 487.8 COMPARISON: None. TECHNIQUE: Following intravenous administration of 30 mCi of technetium 99 and sestamibi, imaging over the neck was obtained at 20 minutes and 2 hours. At 2 hours nuclear medicine SPECT and a CT SPECT was performed. Color perfusion was performed on a separate workstation and a little for interpretation. FINDINGS: I 20 minutes imaging there is normal activity seen in the right thyroid lobe. There is focal increased activity seen in the left mid and lower pole of the left thyroid gland.. At 2 hour imaging the right thyroid in the left upper lobe thyroid gland has significantly washed out and has almost no activity. There is persistent increased activity seen in the mid to lower pole left thyroid lobe best visualized on the SPECT study in the left fusion study. On CT imaging is a hypodense exophytic nodule posterior to mid and lower pole measuring 1.6 x 1.7 cm and approximately 2.5 cm in craniocaudad length.. NM/NM parathyroid SPECT w CT IMPRESSION: Large left parathyroid adenoma posterior to mid and lower pole left thyroid gland. It measures approximate 1.6 x 1.7 x 2.5 cm. 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 Subsequently, fat suppressed axial and coronal T1-weighted images were obtained after the intravenous administration of 6 mL Gadavist. FINDINGS: There is no significant loss of signal intensity within the liver on opposed phase suggest steatosis. There is no enhancing liver mass. The hepatic and portal veins patent. There is no intrahepatic biliary ductal dilatation. The gallbladder is contracted. The common bile duct is normal in caliber. No intraluminal filling defects are identified to suggest choledocholithiasis. The spleen is unremarkable. There is no pancreatic mass. The pancreatic duct is normal in caliber. The right adrenal gland is unremarkable. There is a 1.4 cm left adrenal nodule. There is no loss of signal intensity within the nodule on opposed phase imaging. These findings are indeterminate for adenoma. There are subcentimeter cysts in both kidneys. There is no hydronephrosis. No retroperitoneal lymphadenopathy or ascites is identified in the upper abdomen. The visualized bones demonstrate normal marrow signal intensity. MR/MR abdomen wo/w con IMPRESSION: 1. No evidence of a pancreatic mass. 2. 1.4 cm left adrenal nodule which is indeterminate for adenoma. This could be further evaluated with adrenal protocol CT if indicated. EXAMINATION: DXA BONE DENSITY EXTREMITY 09/22/2024 HISTORY: Hyperparathyroidism TECHNIQUE: Winning Pitch Dual energy absorptiometry (DEXA) of the lumbar spine, total left hip, femoral neck, and distal forearm was performed. COMPARISON: There are no prior studies for comparison. FINDINGS: The bone mineral density of the lumbar spine is 0.899 with a T-score of -2.7, and a Z-score of -1.9. This is indicative of osteoporosis. The bone mineral density of the left total hip is 0.759 with a T-score of -2.4, and a Z-score of -1.7. This is indicative of osteopenia. The bone mineral density of the left femoral neck is 0.644 with a T-score of -3.3, and a Z-score of -2.2. This is indicative of osteoporosis. The bone mineral density of the distal forearm is 0.771 with a T-score of -2.2, and a Z-score of -2.0. This is indicative of osteopenia. MM/XR DEXA appendicular skeleton IMPRESSION: Based on bone mineral density, and according to World Health Organization (WHO) criteria, the diagnosis is consistent with osteoporosis. MR BRAIN PITUITARY PROTOCOL WITHOUT AND WITH CONTRAST 09/26/24 CLINICAL INFORMATION: Multiple endocrine neoplasm. Concerning for possible [masses. COMPARISON: None available. TECHNIQUE: Multiplanar, multisequence MRI of the brain pituitary protocol was obtained before and after the intravenous administration of 3.2 mL gadolinium based without reported immediate complications. FINDINGS: The pituitary gland demonstrates normal morphology, size and enhancement pattern. The pituitary stalk is midline and measures less than 2 mm maximal thickness. The optic chiasm is intact and normal. The flow-void signal within the cavernous supracavernous segments of the ICAs is normal. No masses or signal abnormality in the cavernous sinuses. Bilateral multifocal patchy and punctate subcortical and deep white matter nonenhancing no restricted diffusion hyperintense T2 FLAIR signal involving centrum semiovale and davila radiata. No restricted diffusion within the brain parenchyma. There is mucosal thickening and restricted diffusion secretions within the right maxillary sinus. Craniocervical junction is intact. No enhancing lesion within the intra-axial or the extra-axial compartment of the cranium. MR/MR head/brain wo/w con IMPRESSION: No acute pituitary mass. Nonspecific nonenhancing no restricted diffusion White matter disease. There is a lengthy differential diagnostic considerations including demyelinating plaques on other etiologies. Acute on chronic right maxillary sinus disease. The possibility of fungal infection should be considered. 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 Surgical History Hx of cholecystectomy Family History Mother Diabetes type 2 Sister Pancreatic cancer Cancer of kidney Sister Diabetes type 2 Physical Exam Vital Signs: Last Vital Signs Pulse 63 12/17/24 11:14 BP 98/70 12/17/24 11:14 Pulse Ox 97 12/17/24 11:14 Oxygen Delivery Method Room Air 12/17/24 11:14 BMI result Body Mass Index 22.9 Assessment & Plan Assessment & Plan (1) MEN1-related hyperparathyroidism: Code(s): E21.3 - Hyperparathyroidism, unspecified Category: Medical Plan: 54-year-old male with 2 sisters with pathogenic variance of MEN1, with him presenting with hyperparathyroidism, classifying him as clinical MEN1. Blood work from March 2024 showed calcium level was up at 12.4, with albumin of 4.3, corrected calcium would be 12.1 with a PTH level of 633 with normal kidney function, vitamin-D level low at 12. Given that elevated PTH in the degree of calcium level plus history of MEN1, he was referred for parathyroid surgery to Dr. Elvin Jasso at [facility]. He has been on vitamin D 1000 units daily since March 2024, repeat vitamin-D levels of 30.3 from July 2024. His vitamin-D dosage is currently 2000 units daily.. Repeat labs July 2024 again showed elevated calcium of 11.8, with albumin of 4.2, corrected calcium would be 11.6. Ionized calcium also elevated at 6.6, also noted to have hypercalciuria with 24 hour urine calcium of 324, he already has kidney stones, 09/02/2024: Bone density showed osteoporosis of the spine with T-score of-2.7, and osteoporosis of the hip with a T-score of-3.3 at the left femoral neck. T-score of -2.4 at the left total hip. I advised him to maintain good hydration to also help with lowering calcium levels. Patients with a MEN1 need parathyroid exploration because they often present with multi gland disease, parathyroid SPECT with CT done on 09/07/2024 showed a large left parathyroid adenoma posterior to mid and lower pole of the left thyroid gland. Measuring 1.6 X 1.7 next 2.5 cm. He also had a 4D CT scan ordered by Dr. Elvin Jasso prior to parathyroid exploration, I do not have records of this but regardless he is being planned for either total or subtotal parathyroidectomy with autotransplantation of the parathyroid. Surgery date 02/14/2025. Plan: -pending surgery for parathyroid exploration with Dr. 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 I told him that it would be good for him to get genetic testing done, he also has a son, and I stressed to him importance of getting genetic testing done for the son as well. I discussed with him that care of MEN1 patient's should ideally be done at our multidisciplinary academic center where they see large volume of MEN1 patient's. he did express diet is very difficult for him to go to [place], plus also expresses that cost and copies of current testing has been too much for him. And would prefer if we could take care of him locally. However I discussed with him that again it is important to establish at an academic center where he can be seen at least once a year and they can also streamline genetic testing for him. I had sent a referral to [facility], patient never heard from that. [facility] has a weight time of 1 year, had sent a referral there as well. Patient right now is willing to be seen at [facility]. He will call us with the registration number after which my staff will send the referral. He does not have any history of pituitary or neuroendocrine tumors. He does have angiofibroma as on the neck. Pituitary panel done July 2024 showed normal labs including IGF-1 and prolactin levels. 09/26/2024: MRI pituitary with and without contrast did not show any pituitary mass. Showed some nonspecific findings of white matter disease, and some thickening in the right maxillary sinus, these nonspecific findings were conveyed to his PCP. he does not have any vision changes, no headaches. Recently a consensus statement came out by [place] [employer] for MEN1, recommendation for imaging for neuroendocrine tumors is every 1-3 years, he does not have any symptoms of diarrhea or acid reflux. Normal gastrin and VIP levels, chromogranin a elevated in 500 from July 2024. 10/01/2024: Abdominal MRI with and without contrast did not show any pancreatic mass, however showed a 1.4 cm left adrenal nodule which is indeterminate, as there was no loss of signal on opposed phase imaging. Adrenal gland nodule discussed below. Mindy Moreno, Noman Pritchett, Jhonny Carranza, Maged Dooley, Ashley Stoddard, Nadeen Jacobson, Ida Chairez, Joni Farmer, [place] [employer] Consensus Statement on Management of Multiple Endocrine Neoplasia Type 1, Endocrine Practice, Volume 31, Issue 4, 2024, Pages 403-418, ISSN [id number], [email or web address]. (https://www.sciencedirect.com/science/article/pii/[email or web address]) Per the above guidelines patient also needs screening for bronchopulmonary/thymic tumors. Thymic tumors in these patients can be quite aggressive when diagnosed. We will order CT chest with IV contrast. Him and his son both need genetic testing. Already sent referral to [facility] genetics, we will check the status, patient has not heard from them. Also placing referral to endocrine tumor genetic Department at [facility]. Plan: -ordered CT chest with IV contrast -next MRI of the pituitary to be repeated 1-3 years from the last 1 anywhere from August 2025 to August 2027 -we will plan to repeat prolactin an IGF-1 level in 1 year in July 2025 -next MRI of the abdomen to be repeated for pancreatic/neuroendocrine tumors 1-3 years from the last 1 anywhere from August 2025 to August 2027 -genetics referral placed to [facility], check status -send referral to endocrine tumor Genetics program at [facility] -follow up with tn end of January 2025 (3) Adrenal gland neoplasm: Code(s): D49.7 - Neoplasm of unspecified behavior of endocrine glands and other parts of nervous system Category: Medical Plan: Patient has clinical MEN1 given 2 first-degree relatives with MEN1 pathogenic variants in his presentation with hyperparathyroidism. While screening for pancreatic/duodenal neuroendocrine tumors, 10/01/2024: Abdominal MRI with and without contrast did not show any pancreatic mass, however showed a 1.4 cm left adrenal nodule which is indeterminate, as there was no loss of signal on opposed phase imaging. We will order CTA adrenals and to further determine the characteristics of this nodule. To screen for hypercortisolism: He does not have any history of hypertension, diabetes. He does have osteoporosis but he also has a underlying hyperparathyroidism. No purple abdominal striae, no skin thinning, no facial plethora. BMI within normal range, he is not obese. However we will check 1 mg dexamethasone suppression test. Labs from July 2024 showed cortisol at 08:00 of 11.8 which is normal, acth of 23 -given the mass is greater than 1 cm in size, we will check for pheochromocytoma with plasma metanephrine and normetanephrine levels. -no history of hypertension but we will check renin, aldosterone, BMP level. Plan: -ordered CT adrenal with IV contrast -ordered 1 mg dexamethasone suppression test -ordered baseline plasma metanephrine normetanephrine levels, acth, cortisol, plasma aldosterone, renin activity, BMP -follow up in 2 months to discuss results Plan I spent 60 minutes in reviewing the record, seeing the patient and documenting in the medical record. 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 Dexamethasone 12/25/24 E21.3 - Hyperparathyroidism, unspecified, 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 CT adrenal wo/w IV con Today D49.7 - Neoplasm of unspecified behavior of endocrine glands and other parts of nervous system, 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 Calcium Today E21.3 - Hyperparathyroidism, unspecified, 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 Phosphorus Today E21.3 - Hyperparathyroidism, unspecified, 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 Vitamin D 25-OH Total Today E21.3 - Hyperparathyroidism, unspecified, 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 Adrenocorticotropic Hormone Today E21.3 - Hyperparathyroidism, unspecified, 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 DHEA Sulfate Today E21.3 - Hyperparathyroidism, unspecified, 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 Renin Today E21.3 - Hyperparathyroidism, unspecified, 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 Metanephrines, Plasma Today E21.3 - Hyperparathyroidism, unspecified, 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 Adrenocorticotropic Hormone 12/25/24 E21.3 - Hyperparathyroidism, unspecified, 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 Cortisol Random 12/25/24 E21.3 - Hyperparathyroidism, unspecified, 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 CT chest w IV con Today 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 Referrals Genetics Referral E21.3 - Hyperparathyroidism, unspecified, 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 You will take a 1 mg pill of dexamethasone at 11 PM and then have a blood draw for cortisol at 8AM the next morning. It is important to make sure you take the dexamethasone at 11 PM and have the blood test as close to 8AM as possible. 3. Do CT chest somene will call you to schedule this 4. Do CT adrenal gland someone will call you to schedule this 5. Call [facility] patient registration process with the number we provide to get registration ID and then call us back with it and we will send the referral then to them. This is for you to establish with an expert specialist there as well. 6. Follow up with Dr. De La Cruz for surgery 7. follow up with me in clinic end of January after surgery Coding Level of Care Code Est Pt Level 5 (39780) Complex EM visit Add On G2211 Diagnoses MEN1-related hyperparathyroidism E21.3 MEN1 (multiple endocrine neoplasia) E31.21 Adrenal gland neoplasm D49.7 Time Spent (min) 60
== END 2024-12-17 12:11 | disposition home or self-care (01) ==
LOC: HO.ENCR 10:59
PROVIDERS: PCP Internal Medicine; Visit Provider Student in an Organized Health Care Education/Training Program
DX: E31.21 Multiple endocrine neoplasia [MEN] type I (principal); E21.3 Hyperparathyroidism, unspecified; D49.7 Neoplasm of unspecified behavior of endocrine glands and other parts of nervous system
CPT/HCPCS: 99215; G2211

== ENCOUNTER → 2024-12-17 10:58 | Outpatient (BNVA) | payer OTHER, SELFPAY | PROVIDERS: PCP Internal Medicine; Visit Provider Student in an Organized Health Care Education/Training Program ==

== ENCOUNTER 2024-12-18 07:51 | Outpatient (REF) | payer OTHER, SELFPAY ==
[2024-12-18 09:28] LABS: Calcium 12.3 mg/dL (8.4-10.2)
[2024-12-18 09:48] LABS: Albumin Level 4.7 g/dL (3.5-5.0); Anion Gap 8 (12-20); Blood Urea Nitrogen 20 mg/dL (9-16); Calcium 11.9 mg/dL (8.4-10.2); Carbon Dioxide 25 mmol/L (22-29); Chloride 113 mmol/L (96-108); Estimated Glomerular Filt Rate > 60; Glucose Random 104 mg/dL (60-115); Phosphorus 1.6 mg/dL (2.7-4.5); Potassium 4.4 mmol/L (3.3-5.1); Sodium 142 mmol/L (135-145)
[2024-12-18 10:22] LABS: Cortisol Random 12.5 ug/dL
[2024-12-20 18:34] LABS: DHEA Sulfate 30 mcg/dL (32-279)
[2024-12-22 07:08] LABS: Adrenocorticotropic Hormone 19 pg/mL (6-50)
[2024-12-22 15:08] LABS: Calcium, Ionized 6.7 mg/dL (4.7-5.5)
[2024-12-23 16:53] LABS: Renin 2.76 ng/mL/h (0.25-5.82)
== END 2024-12-18 07:52 | disposition home or self-care (01) ==
LOC: HO.LAB 07:51
PROVIDERS: PCP Internal Medicine; Visit Provider Student in an Organized Health Care Education/Training Program
DX: E21.3 Hyperparathyroidism, unspecified (principal); E31.21 Multiple endocrine neoplasia [MEN] type I; E23.1 Drug-induced hypopituitarism
CPT/HCPCS: 36415; 80048; 82024; 82040; 82088; 82306; 82310; 82330; 82533; 82627; 84100; 84244

== ENCOUNTER 2024-12-25 07:52 | Outpatient (REF) | payer OTHER, SELFPAY ==
[2024-12-25 10:54] LABS: Cortisol Random 1.1 ug/dL
[2024-12-29 04:28] LABS: Adrenocorticotropic Hormone 7 pg/mL (6-50)
[2025-01-03 01:08] LABS: Metanephrine, Free 82 pg/mL (<=57); Normetanephrines, Free 76 pg/mL (<=148); Total Metanephrine, Free 158 pg/mL (<=205)
[2025-01-03 01:54] LABS: Dexamethasone 209 ng/dL
== END 2024-12-25 07:53 | disposition home or self-care (01) ==
LOC: HO.LAB 07:52
PROVIDERS: PCP Internal Medicine; Visit Provider Student in an Organized Health Care Education/Training Program
DX: E31.21 Multiple endocrine neoplasia [MEN] type I (principal); D49.7 Neoplasm of unspecified behavior of endocrine glands and other parts of nervous system; E21.3 Hyperparathyroidism, unspecified
CPT/HCPCS: 36415; 80299; 82024; 82533; 83835

== ENCOUNTER 2025-01-17 07:58 | Outpatient (REF) | payer OTHER, SELFPAY ==
--- NOTE | ~2025-01-17 | CT_ITS ---
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 There is a 1.6 x 1.4 cm left adrenal lesion which appears grossly unchanged in size accounting for differences in positioning and modalities. This measures 112 Hounsfield units on portal venous phase imaging, 18 Hounsfield units on precontrast imaging and 58 Hounsfield units on delayed phase imaging. Subcentimeter hypodensities in both kidneys too small to accurately characterize by CT criteria statistically represent cysts. Accounting for differences in positioning and differences in modality there is no significant change in left adrenal lesion measuring 1.6 x 1.4 cm. The absolute washout of 57% is indeterminate however the relative washout of 48% is consistent with an adrenal adenoma. Attention on follow-up imaging is recommended. Lipoma in the cecum measuring 2.2 cm. Postoperative changes of the bowel. The bones are intact. IMPRESSION: Accounting for differences in positioning and differences in modality there is no significant change in left adrenal lesion measuring 1.6 x 1.4 cm. The absolute washout of 57% is indeterminate however the relative washout of 48% is consistent with an adrenal adenoma. Attention on follow-up imaging is recommended. This document has been electronically signed by: Lux Leger DO on 01/17/2025 13:55:23
--- NOTE | ~2025-01-17 | CT_ITS ---
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 Heterogeneous mass along the posterior aspect or posterior to the left thyroid lobe measuring 2.3 x 1.7 cm. The lungs are clear. Refer to concurrently acquired CT abdomen for description of left adrenal finding. Subcentimeter hypodensities in both kidneys too small to accurately characterize by CT criteria statistically represent cysts. Nonaggressive appearing sclerotic osseous lesion in the left proximal humerus measuring 0.5 cm. Comparison with prior imaging if available is recommended. If prior imaging is not available then nuclear medicine bone scan could be obtained for further evaluation. IMPRESSION: 1. Heterogeneous mass along the posterior aspect or posterior to the left thyroid lobe measuring 2.3 x 1.7 cm. This may be a thyroid finding or parathyroid finding. Thyroid ultrasound is recommended for further evaluation. Also, CT neck or nuclear medicine parathyroid scan may be necessary. 2. Nonaggressive appearing sclerotic osseous lesion in the left proximal humerus measuring 0.5 cm. Comparison with prior imaging if available is recommended. If prior imaging is not available then nuclear medicine bone scan could be obtained for further evaluation. This document has been electronically signed by: Lux Leger DO on 01/17/2025 14:03:37
--- OUTSIDE RECORDS SUMMARY | 2025-01-17 08:02 | XMS_ITS | Clinical Summary ---
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 04/29/2024 Active Active Problems No known active problems Social History Tobacco Use Types Packs/Day Years [...] Orientation Straight 12/21/2024 12 :53 PM EDT Last Filed Vital Signs Vital Sign Reading Time Taken Comments Blood Pressure 151/79 05/25/2024 2:23 PM EST Pulse 65 05/25/2024 2:23 PM EST Temperature - - Respiratory Rate - - Oxygen Saturation 99% 05/25/2024 2:23 PM EST Inhaled Oxygen Concentration - - Weight - - Height 160 cm (5' 3 ) 05/25/2024 2:23 PM EST Body Mass Index - - Plan of Treatment Health Maintenance Due Date Last Done Comments Adult Td,Tdap Booster 1970 LIPID PANEL 1970 DEPRESSION SCREENING 1982 SMOKING Hx and SMOKELESS TOB ACCO SCREENING 1983 HEPATITIS C SCREENING 1988 HIV ONE-TIME SCREENING (18-6 5 YEARS) 1988 COLOGUARD 2015 COLONOSCOPY 2015 COLORECTAL CANCER SCREENING 2015 FIT TEST 2015 FOBT 2015 SIGMOIDOSCOPY 2015 VIRTUAL COLONOSCOPY 2015 PNEUMOCOCCAL VACCINES (50+ y ears) (1 of 1 - PCV) 2020 ZOSTER VACCINES (1 of 2) 2020 COVID-19 VACCINE (1 - 2023-2 5 season) 2024 HEPATITIS A VACCINES Aged Out No long er eligible based on patient's age to complete this topic HIB VACCINES Aged Out No longer eligi ble based on patient's age to complete this topic MENINGOCOCCAL VACCINES (ACWY) Aged Out No longer eligible based on patient's age to complete this topic MENINGOCOCCAL VACCINES (B) Aged Out N o longer eligible based on patient's age to complete this topic Medical Devices Not on file Insurance [facility] [place] [place] [facility] [place] Address[place] [address] [address] Care Teams 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 It is not the complete legal health record.[facility]ly [facility]
[2025-01-17] MEDS: iohexoL 350 MG/ML 100 ML INFUS..BTL 85 ML IV (09:33)
== END 2025-01-17 07:59 | disposition home or self-care (01) ==
LOC: HO.CT 07:58
PROVIDERS: PCP Internal Medicine; Visit Provider Student in an Organized Health Care Education/Training Program
DX: E31.21 Multiple endocrine neoplasia [MEN] type I (principal); D49.7 Neoplasm of unspecified behavior of endocrine glands and other parts of nervous system
CPT/HCPCS: 71260; 74170; Q9967

== ENCOUNTER → 2025-01-17 07:59 | Outpatient (BNV) | payer OTHER, SELFPAY | PROVIDERS: PCP Internal Medicine; Visit Provider Family Medicine | DX: D35.02 Benign neoplasm of left adrenal gland (principal); E04.1 Nontoxic single thyroid nodule | CPT/HCPCS: 71260; 74170 ==

== ENCOUNTER 2025-03-29 13:06 | Outpatient (AMB) | payer OTHER, SELFPAY ==
--- OUTSIDE RECORDS SUMMARY | 2012-11-04 | XMS_ITS | Encounter Summary ---
Author Organization [facility] Address [address] [facility] [address] [place] [phone] Phone Care Team Providers Care Underwriter Name Role Phone Unavailable Primary Care Provider Unavailabl e Encounter Details Date Type Department Care Team (Late st Contact Info) Description 11/04/2012 Hospital Encounter [facility] IMG OUTSIDE IMG [address] [place] [address] Joni Cortez MD [address] [place] [phone] [email or web address] Social History Tobacco Use Types Packs/Day [...] (No Interpretation) (11/04/2012 12:00 AM EDT) Narrative [facility] IMG INTERFACES - 05/24/2024 5:11 PM EST This study is for PACS storage only and not for interpretation. us Joni Cortez MD IMG OUTSIDE IMAGING W/OUT INTERPRETATION Final Result [facility] IMG INTERFACES documented in this encounter Visit Diagnoses Not on filedocumented in this encounter Additional Source Comments The information contained in this document represents components of the legal health record. It is not the complete legal health record.[facility]
[2025-03-29 13:15] VITALS: BP 144/98; PULSE 87; O2SAT 98; BMI 24.2
--- NOTE | 2025-03-29 13:15 | A.OFFVIS_ITS ---
Vital Signs 3 03/29/25 13:15 Height 5 ft 5.16 in Weight 146 lb 2.664 oz BMI 24.2 BP 144/98 H Blood Pressure Location Rt brachial Position Sitting Pulse 87 Pulse Source Pulse Oximeter Pulse Oximetry (%) 98 Oxygen Delivery Method Room Air Intake Visit Reasons: multiple endocrine neoplasia Intake Note: Patient present today for multiple endocrine neoplasia office visit. [employer] Required: No Accompanied by: Self / Same As Patient Allergies penicillin V Allergy (Unknown, Verified 03/29/25 13:19) Unknown Penicillins (PCN) Allergy (Unknown, Verified 03/29/25 13:19) SWELLING Medication List - Last Reconciled 03/29/25 by Milady Dave MD calcitriol 0.25 mcg PO Q12H calcium carbonate (Antacid Ultra Strength) 4000 mg orally 4 times a day; 4000 mg orally cholecalciferol (vitamin D3) 50 mcg PO DAILY dexamethasone 1 mg PO DAILY HPI Comments Details: 54 years old male here today for follow up of primary hyperparathyroidism. . He has clinical MEN1. Clinical MEN1 Hyperparathyroidism Was noted to have high calcium levels at the age of 15 years? Says he was in [place] Reports kidney stones has passed one every 5 years No abd pain, no increased urination, no constipation No fractures Labs from March 2023 show calcium level of 11.5 with albumin of 4.1, labs from March 2024 show calcium level of 12.4 with albumin of 4.3, corrected calcium 12.1, phosphorus low at 1.8, vitamin-D low at 12, PTH of 633. Normal kidney function. No diarrhea, has been having some intermittent acid reflux 1-2 episodes in the last 6 months . No vision changes. No headaches. sometimes feels pressures behind the eyes Some degree of erectile dysfunction. No weight changes. No easy bruising, no proximal muscle weakness. no lightheadedness , dizzines Not on medications other than vitamin D 1000 units daily. Since March 2024. Surgery history Polyp resection colonoscopy Small bowel obtsruction in 2013 He follows with the Urology for concerns of elevated PSA. Family history Mother: hyperparathyroidism Julieta older sister: MEN1 pathogenic variant : from neuroendocrine tumors Basim rodgers sister: MEN1 pathogenic variant, had pancreatitis recently, had hyperparathyrodism 27 years old son, not been tested Never smoker No marijuana, no alcohol , no drug use 08/14/2024: Labs showed normal thyroid function, normal FSH, LH, prolactin, testosterone levels, IGF-1, cortisol and ACTH all done at 08:00. Normal vasoactive intestinal peptide polypeptide of 34, normal gastrin level of 34 chromogranin a level elevated to 501. Calcium level elevated to 11.8, albumin of 4.2, ionized calcium of 6.6. Vitamin-D of 30.3. Normal kidney function, noted to have hypercalciuria with 24 hour urine calcium elevated at 324 mg per 24 hours. 09/07/2024: Parathyroid SPECT with CT showed large left parathyroid adenoma posterior to mid and lower pole of left thyroid gland. Measuring 1.6 X 1.7 X 2.5 cm. 09/10/24: saw Dr. Jasso plan is for total or subtotal parathyroidectomy with autotransplantation , has date for surgery 02/14/2025 at [facility]. He is on vitamin-D 2000 units daily. Interval history 12/17/2024 09/02/2024: Bone density showed osteoporosis of the spine with T-score of-2.7, and osteoporosis of the hip with a T-score of-3.3 at the left femoral neck. T-score of -2.4 at the left total hip. 10/01/2024: Abdominal MRI with and without contrast did not show any pancreatic mass, however showed a 1.4 cm left adrenal nodule which is indeterminate, as there was no loss of signal on opposed phase imaging. 09/26/2024: MRI pituitary with and without contrast did not show any pituitary mass. Showed some nonspecific findings of white matter disease, and some thickening in the right maxillary sinus, these nonspecific findings were conveyed to his PCP. Interval history 03/29/2025 01/17/2025: CT adrenal gland showed a 1.6 X1.4 cm left adrenal gland lesion with 18 Hounsfield units precontrast, with relative washout of 48% consistent with adrenal adenoma. 01/17/2025: CT chest with contrast did not identify any thymic tumor, however did show the heterogenous mass along the posterior aspect of left thyroid lobe measuring 2.3 cm likely consistent with parathyroid adenoma. Also showed a nonaggressive appearing sclerotic osseous lesion in the left proximal humerus measuring 0.5 cm. No comparison prior imaging available. Recommended nuclear medicine bone scan. For hyperparathyroidism Status post 2-1/2 gland resection with the exploratory parathyroidectomy on 02/09/[address] Elvin Jasso at [facility], pathology showed 3 cm left superior adenoma, hyperplasia in the left inferior gland, right inferior gland was biopsied with have resection. Right superior gland was not found. He was discharged home on Tums 1000 mg 2 tabs Q 2 3 times a day Follow up serum calcium 02/09 was 7.2 with albumin of 4.1, instructed to increase Tums to 2000 mg 4 times a day. Repeat serum calcium 02/21 was 6.9 with albumin of 4. Asked to increase Tums to 4 tablets a day and started on calcitriol 0.25 mcg twice daily. 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, angiofibroma noted on the nose Laboratory Tests 04/19/23 04/24/24 09:03 07:44 Creatinine 0.99 1.01 Estimated GFR > 60 > 60 Calcium 11.5 H 12.4 H D Phosphorus 1.8 L PSA Screen 13.09 H 25-OH Vitamin D Total 12.0 L PTH Intact 633.2 H Laboratory Tests 04/19/23 04/24/24 09:03 07:44 Albumin 4.1 4.3 Laboratory Tests 04/24/24 08/14/24 08/14/24 07:44 08:00 08:25 Sodium 142 Potassium 4.4 Creatinine 0.90 Estimated GFR > 60 Calcium 12.4 H D 11.8 H Ionized Calcium 6.6 H Phosphorus 1.8 L 2.1 L Albumin 4.3 4.2 Vasoact Intest Polypep 34 25-OH Vitamin D Total 30.3 TSH 2.47 Free T4 1.09 FSH 8.5 Luteinizing Hormone 3.7 Prolactin 6.4 Total Testosterone 440 Fr Testosterone Dialys 141.2 Sex Hormone Bind Glob 35 Human Growth Hormone <0.1 Somatomedin-C 143 Somato-C Z-Score Male 0.1 PTH Intact 487.8 H Random Cortisol 11.8 ACTH 23 Urine Total Volume 1350 Ur 24 Hour Volume 1350 Ur Creatinine mg/dL 99.14 Ur Creatinine 24 Hour 1.37 Ur Calcium 24 Hr 324 H Calcium/Creat 24 Hr 267 H Ur Free Cortisol 24 Hr 23.1 Chromogranin A 501 H Laboratory Tests 08/14/24 08:25 Gastrin 34 Laboratory Tests 08/14/24 12/18/24 12/25/24 08:00 09:13 08:16 Calcium 12.3 H Ionized Calcium 6.7 H Renin 2.76 Aldosterone 11 DHEA Sulfate 30 L Random Cortisol 12.5 1.1 ACTH 19 7 Plasma Free Metaneph 82 H Plasma Free Normeta 76 Plas Total Metaneph 158 Urine Total Volume 1350 Ur Free Cortisol 24 Hr 23.1 Dexamethasone 209 labs from [facility] 03/27/25 Calcium 8.1 Albumin 4.2 PTH 11 03/13/25 Calcium 8.6 albumin 4.4 PTH 9 Exploratory parathyroidectomy 02/09/25 CT abdomen with and without contrast 01/17/25 Comparison: CT/SR - CT CHEST W IV CON - 01/17/25 08:20 EDT MR/SD/SR - MR ABDOMEN WITHOUT THEN WITH IV CONTRAST - 10/01/24 16:12 EDT Findings: No consolidation or effusion. There is a 1.6 x 1.4 cm left adrenal lesion which appears grossly unchanged in size accounting for differences in positioning and modalities. This measures 112 Hounsfield units on portal venous phase imaging, 18 Hounsfield units on precontrast imaging and 58 Hounsfield units on delayed phase imaging. Subcentimeter hypodensities in both kidneys too small to accurately characterize by CT criteria statistically represent cysts. Accounting for differences in positioning and differences in modality there is no significant change in left adrenal lesion measuring 1.6 x 1.4 cm. The absolute washout of 57% is indeterminate however the relative washout of 48% is consistent with an adrenal adenoma. Attention on follow-up imaging is recommended. Lipoma in the cecum measuring 2.2 cm. Postoperative changes of the bowel. The bones are intact. IMPRESSION: Accounting for differences in positioning and differences in modality there is no significant change in left adrenal lesion measuring 1.6 x 1.4 cm. The absolute washout of 57% is indeterminate however the relative washout of 48% is consistent with an adrenal adenoma. Attention on follow-up imaging is recommended. This document has been electronically signed by: Lux Leger DO on 01/17/2025 13:55:23 CT chest with contrast 01/17/25 Comparison: CT/SR - CT ADRENAL WO/W IV CON - 01/17/25 08:20 EDT CR/SR - XR CHEST 2 VIEWS - 04/16/23 16:41 EDT Findings: The heart size is normal. Heterogeneous mass along the posterior aspect or posterior to the left thyroid lobe measuring 2.3 x 1.7 cm. The lungs are clear. Refer to concurrently acquired CT abdomen for description of left adrenal finding. Subcentimeter hypodensities in both kidneys too small to accurately characterize by CT criteria statistically represent cysts. Nonaggressive appearing sclerotic osseous lesion in the left proximal humerus measuring 0.5 cm. Comparison with prior imaging if available is recommended. If prior imaging is not available then nuclear medicine bone scan could be obtained for further evaluation. IMPRESSION: 1. Heterogeneous mass along the posterior aspect or posterior to the left thyroid lobe measuring 2.3 x 1.7 cm. This may be a thyroid finding or parathyroid finding. Thyroid ultrasound is recommended for further evaluation. Also, CT neck or nuclear medicine parathyroid scan may be necessary. 2. Nonaggressive appearing sclerotic osseous lesion in the left proximal humerus measuring 0.5 cm. Comparison with prior imaging if available is recommended. If prior imaging is not available then nuclear medicine bone scan could be obtained for further evaluation. This document has been electronically signed by: Lux Leger DO on 01/17/2025 14:03:37 EXAMINATION: Nuclear medicine parathyroid SPECT with CT. 09/07/24 CLINICAL INDICATION: Hyperparathyroidism. Calcium- 11.8. PTH- 487.8 COMPARISON: None. TECHNIQUE: Following intravenous administration of 30 mCi of technetium 99 and sestamibi, imaging over the neck was obtained at 20 minutes and 2 hours. At 2 hours nuclear medicine SPECT and a CT SPECT was performed. Color perfusion was performed on a separate workstation and a little for interpretation. FINDINGS: I 20 minutes imaging there is normal activity seen in the right thyroid lobe. There is focal increased activity seen in the left mid and lower pole of the left thyroid gland.. At 2 hour imaging the right thyroid in the left upper lobe thyroid gland has significantly washed out and has almost no activity. There is persistent increased activity seen in the mid to lower pole left thyroid lobe best visualized on the SPECT study in the left fusion study. On CT imaging is a hypodense exophytic nodule posterior to mid and lower pole measuring 1.6 x 1.7 cm and approximately 2.5 cm in craniocaudad length.. NM/NM parathyroid SPECT w CT IMPRESSION: Large left parathyroid adenoma posterior to mid and lower pole left thyroid gland. It measures approximate 1.6 x 1.7 x 2.5 cm. 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 Subsequently, fat suppressed axial and coronal T1-weighted images were obtained after the intravenous administration of 6 mL Gadavist. FINDINGS: There is no significant loss of signal intensity within the liver on opposed phase suggest steatosis. There is no enhancing liver mass. The hepatic and portal veins patent. There is no intrahepatic biliary ductal dilatation. The gallbladder is contracted. The common bile duct is normal in caliber. No intraluminal filling defects are identified to suggest choledocholithiasis. The spleen is unremarkable. There is no pancreatic mass. The pancreatic duct is normal in caliber. The right adrenal gland is unremarkable. There is a 1.4 cm left adrenal nodule. There is no loss of signal intensity within the nodule on opposed phase imaging. These findings are indeterminate for adenoma. There are subcentimeter cysts in both kidneys. There is no hydronephrosis. No retroperitoneal lymphadenopathy or ascites is identified in the upper abdomen. The visualized bones demonstrate normal marrow signal intensity. MR/MR abdomen wo/w con IMPRESSION: 1. No evidence of a pancreatic mass. 2. 1.4 cm left adrenal nodule which is indeterminate for adenoma. This could be further evaluated with adrenal protocol CT if indicated. EXAMINATION: DXA BONE DENSITY EXTREMITY 09/22/2024 HISTORY: Hyperparathyroidism TECHNIQUE: [employer] Dual energy absorptiometry (DEXA) of the lumbar spine, total left hip, femoral neck, and distal forearm was performed. COMPARISON: There are no prior studies for comparison. FINDINGS: The bone mineral density of the lumbar spine is 0.899 with a T-score of -2.7, and a Z-score of -1.9. This is indicative of osteoporosis. The bone mineral density of the left total hip is 0.759 with a T-score of -2.4, and a Z-score of -1.7. This is indicative of osteopenia. The bone mineral density of the left femoral neck is 0.644 with a T-score of -3.3, and a Z-score of -2.2. This is indicative of osteoporosis. The bone mineral density of the distal forearm is 0.771 with a T-score of -2.2, and a Z-score of -2.0. This is indicative of osteopenia. MM/XR DEXA appendicular skeleton IMPRESSION: Based on bone mineral density, and according to World Health Organization (WHO) criteria, the diagnosis is consistent with osteoporosis. MR BRAIN PITUITARY PROTOCOL WITHOUT AND WITH CONTRAST 09/26/24 CLINICAL INFORMATION: Multiple endocrine neoplasm. Concerning for possible [masses. COMPARISON: None available. TECHNIQUE: Multiplanar, multisequence MRI of the brain pituitary protocol was obtained before and after the intravenous administration of 3.2 mL gadolinium based without reported immediate complications. FINDINGS: The pituitary gland demonstrates normal morphology, size and enhancement pattern. The pituitary stalk is midline and measures less than 2 mm maximal thickness. The optic chiasm is intact and normal. The flow-void signal within the cavernous supracavernous segments of the ICAs is normal. No masses or signal abnormality in the cavernous sinuses. Bilateral multifocal patchy and punctate subcortical and deep white matter nonenhancing no restricted diffusion hyperintense T2 FLAIR signal involving centrum semiovale and davila radiata. No restricted diffusion within the brain parenchyma. There is mucosal thickening and restricted diffusion secretions within the right maxillary sinus. Craniocervical junction is intact. No enhancing lesion within the intra-axial or the extra-axial compartment of the cranium. MR/MR head/brain wo/w con IMPRESSION: No acute pituitary mass. Nonspecific nonenhancing no restricted diffusion White matter disease. There is a lengthy differential diagnostic considerations including demyelinating plaques on other etiologies. Acute on chronic right maxillary sinus disease. The possibility of fungal infection should be considered. Electronically signed by: Naldo Templeton MD 09/28/2024 01:22 PM EDT [facility] Medical History (Updated 03/29/25 @ 13:45 by Milady Dave MD) Bone lesion Adrenal gland neoplasm MEN1 (multiple endocrine neoplasia) MEN1-related hyperparathyroidism Surgical History (Updated 03/29/25 @ 13:23 by LETY Camargo) H/O parathyroidectomy Hx of cholecystectomy Family History Mother Diabetes type 2 Sister Pancreatic cancer Cancer of kidney Sister Diabetes type 2 Physical Exam Vital Signs: Last Vital Signs Pulse 87 03/29/25 13:15 BP 144/98 H 03/29/25 13:15 Pulse Ox 98 03/29/25 13:15 Oxygen Delivery Method Room Air 03/29/25 13:15 BMI result Body Mass Index 24.2 Assessment & Plan Assessment & Plan (1) MEN1-related hyperparathyroidism: Code(s): E21.3 - Hyperparathyroidism, unspecified Category: Medical Plan: 54-year-old male with 2 sisters with pathogenic variance of MEN1, with him presenting with hyperparathyroidism, classifying him as clinical MEN1. Blood work from March 2024 showed calcium level was up at 12.4, with albumin of 4.3, corrected calcium would be 12.1 with a PTH level of 633 with normal kidney function, vitamin-D level low at 12. Given that elevated PTH in the degree of calcium level plus history of MEN1, he was referred for parathyroid surgery to Dr. Elvin Jasso at [facility]. His vitamin-D dosage is currently 2000 units daily.. Repeat labs July 2024 again showed elevated calcium of 11.8, with albumin of 4.2, corrected calcium would be 11.6. Ionized calcium also elevated at 6.6, also noted to have hypercalciuria with 24 hour urine calcium of 324, he already has kidney stones, 09/02/2024: Bone density showed osteoporosis of the spine with T-score of-2.7, and osteoporosis of the hip with a T-score of-3.3 at the left femoral neck. T-score of -2.4 at the left total hip. parathyroid SPECT with CT done on 09/07/2024 showed a large left parathyroid adenoma posterior to mid and lower pole of the left thyroid gland. Measuring 1.6 X 1.7 next 2.5 cm. Status post 2-07/01 parathyroid gland resection during exploration early parathyroidectomy 02/14/[address] Elvin Jasso at [facility] which showed a 3 cm left superior adenoma, mildly hyperplastic left inferior gland, biopsy of her right inferior mildly hyperplastic gland, right superior parathyroid could not be found. PTH level intraoperatively drop from 316-23. Subsequently patient developed hypocalcemia and has been monitored closely by Dr. Elvin Jasso's office. He is currently on Tums ultra strength antacid 4000 mg 4 times a day, calcitriol 0.25 mcg b.i.d.. Most recent labs labs from [facility] 03/27/25 Calcium 8.1 Albumin 4.2 PTH 11 03/13/25 Calcium 8.6 albumin 4.4 PTH 9 PTH is somewhat improves, calcium levels are also better with a corrected calcium around 7.9. For now I would continue him on the same regimen. I have asked him to repeat labs in another 2 weeks. We should hope that his parathyroid function recovers and soon calcium level should be normal. We will continue to monitor closely. Given right superior gland could not be found, he is at high-risk of recurrence and we should continue to monitor him shelter for recurrence of hyperparathyroidism. Plan: -continue Tums 4000 mg 4 times a day -continue calcitriol 0.25 mcg b.i.d. 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 I told him that it would be good for him to get genetic testing done, he also has a son, and I stressed to him importance of getting genetic testing done for the son as well. I discussed with him that care of MEN1 patient's should ideally be done at our multidisciplinary academic center where they see large volume of MEN1 patient's. he did express diet is very difficult for him to go to [place], plus also expresses that cost and copies of current testing has been too much for him. And would prefer if we could take care of him locally. However I discussed with him that again it is important to establish at an academic center where he can be seen at least once a year and they can also streamline genetic testing for him. I had sent a referral to [facility], patient never heard from that. [facility] has a weight time of 1 year, had sent a referral there as well. Patient right now is willing to be seen at [facility]. He will call us with the registration number after which my staff will send the referral. He does not have any history of pituitary or neuroendocrine tumors. He does have angiofibroma as on the neck. Pituitary panel done July 2024 showed normal labs including IGF-1 and prolactin levels. 09/26/2024: MRI pituitary with and without contrast did not show any pituitary mass. Showed some nonspecific findings of white matter disease, and some thickening in the right maxillary sinus, these nonspecific findings were conveyed to his PCP. he does not have any vision changes, no headaches. Recently a consensus statement came out by [place] [employer] for MEN1, recommendation for imaging for neuroendocrine tumors is every 1-3 years, he does not have any symptoms of diarrhea or acid reflux. Normal gastrin and VIP levels, chromogranin a elevated in 500 from July 2024. 10/01/2024: Abdominal MRI with and without contrast did not show any pancreatic mass, however showed a 1.4 cm left adrenal nodule which is indeterminate, as there was no loss of signal on opposed phase imaging. Adrenal gland nodule discussed below. Ciaran Kaur, Mindy Navarro, Noman Pritchett, Jhonny Carranza, Maged Dooley, Ashley Stoddard, Nadeen Jacobson, Ida Chairez, Joni Farmer, [place] [employer] Consensus Statement on Management of Multiple Endocrine Neoplasia Type 1, Endocrine Practice, Volume 31, Issue 42024, Pages 403-418, ISSN [id number], [email or web address]. (https://www.sciencedirect.com/science/article/pii/[email or web address]) Per the above guidelines patient also needs screening for bronchopulmonary/thymic tumors. Thymic tumors in these patients can be quite aggressive when diagnosed. 01/17/2025: CT chest with contrast did not identify any thymic tumor, however did show the heterogenous mass along the posterior aspect of left thyroid lobe measuring 2.3 cm likely consistent with parathyroid adenoma. Also showed a nonaggressive appearing sclerotic osseous lesion in the left proximal humerus measuring 0.5 cm. No comparison prior imaging available. Recommended nuclear medicine bone scan. Him and his son both need genetic testing. Already sent referral to [facility], has [facility] appointment 08/30/2025.. Also previously placed referral to endocrine tumor genetic Department at [facility]. Patient has some trouble going to [place]. Plan: -ordered nuclear medicine bone scan -next MRI of the pituitary to be repeated 1-3 years from the last 1 anywhere from August 2025 to August 2027 -we will plan to repeat prolactin an IGF-1 level in 1 year with labs done prior to next appointment in August 2025 -next MRI of the abdomen to be repeated for pancreatic/neuroendocrine tumors 1-3 years from the last 1 anywhere from August 2025 to August 2027 -has [facility] appointment on 08/30/2025 -follow up on the status of referral to endocrine tumor Genetics program at [facility] -follow up with dc August 2025 (3) Bone lesion: Code(s): M89.9 - Disorder of bone, unspecified Category: Medical Plan: See above (4) Adrenal gland neoplasm: Code(s): D49.7 - Neoplasm of unspecified behavior of endocrine glands and other parts of nervous system Category: Medical Plan: Patient has clinical MEN1 given 2 first-degree relatives with MEN1 pathogenic variants in his presentation with hyperparathyroidism. While screening for pancreatic/duodenal neuroendocrine tumors, 10/01/2024: Abdominal MRI with and without contrast did not show any pancreatic mass, however showed a 1.4 cm left adrenal nodule which is indeterminate, as there was no loss of signal on opposed phase imaging. 01/17/2025: CT adrenal gland showed a 1.6 X1.4 cm left adrenal gland lesion with 18 Hounsfield units precontrast, with relative washout of 48% consistent with adrenal adenoma. To screen for hypercortisolism: He does not have any history of hypertension, diabetes. He does have osteoporosis but he also has a underlying hyperparathyroidism. No purple abdominal striae, no skin thinning, no facial plethora. BMI within normal range, he is not obese. Labs from July 2024 showed cortisol at 08:00 of 11.8 which is normal, acth of 23 Labs from November 2024 showed normal plasma metanephrine, normetanephrine, aldosterone, renin, dexamethasone suppression test. We will consider repeat imaging once in 1-2 years from last 1 so sometime around December 2025 or December 2026. Plan: -consider repeat CT adrenal between December 2025-December 2026 Plan I spent 40 minutes in reviewing the record, seeing the patient and documenting in the medical record. 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 Jasso's office chnages your medication, please also give us a call during office hours and let us know Do bone scan , someone will call you to schedule this See genetics [facility] I think it is a tele health appointment on 08/30/25 but please confirm with them Follow up with me in August 2025 in clinic Coding Level of Care Code Est Pt Level 5 (24522) Complex EM visit Add On G2211 Diagnoses MEN1-related hyperparathyroidism E21.3 MEN1 (multiple endocrine neoplasia) E31.21 Bone lesion M89.9 Adrenal gland neoplasm D49.7 Time Spent (min) 40
--- OUTSIDE RECORDS SUMMARY | 2025-03-29 14:19 | XMS_ITS | Clinical Summary ---
Author Organization [facility] Address [address] [place] [address] Phone Care Team Providers Care Reel Assembler Name Role Phone Emili Riley MD Primary Care Provider Deena Celeste FORM SETTER STEEL FORMS Unavailable [phone] Allergies Active Allergy Reactions Criticality Noted Date [...] 2020 ZOSTER VACCINES (1 of 2) 2020 INFLUENZA VACCINE (#1) 2025 COVID-19 VACCINE (1 - 2023-2 5 season) 2025 HEPATITIS A VACCINES Aged Out No long [...] topic Medical Devices Not on file Insurance [facility] [place] [place] [facility] [place] [place] [facility] H[facility] Care Teams Reel Assembler Relationship Specialty Start Date End Date Emili Riley MD [address] [place] [phone] PCP - General Internal Medicine 03/02/24 Deena Celeste CNP [address] [place] [phone] [email or web address] Nurse Practitioner 05/25/24 Additional Source Comments The information contained in this document represents components of the legal health record. It is not the complete legal health record.[facility]
== END 2025-03-29 13:54 | disposition home or self-care (01) ==
LOC: HO.ENCR 13:06
PROVIDERS: PCP Internal Medicine; Visit Provider Student in an Organized Health Care Education/Training Program
DX: E21.3 Hyperparathyroidism, unspecified (principal); E31.21 Multiple endocrine neoplasia [MEN] type I; M89.9 Disorder of bone, unspecified; D49.7 Neoplasm of unspecified behavior of endocrine glands and other parts of nervous system
CPT/HCPCS: 99215; G2211

== ENCOUNTER 2025-04-12 07:12 | Outpatient (REF) | payer OTHER, SELFPAY ==
--- OUTSIDE RECORDS SUMMARY | 2012-11-04 | XMS_ITS | Encounter Summary ---
Author Organization [facility] Address [address] [facility] [address] [place] [address] Phone Care Team Providers Care Director Of Recruiting Name Role Phone Unavailable Primary Care Provider Unavailabl e Encounter Details Date Type Department Care Team (Late st Contact Info) Description 11/04/2012 Hospital Encounter [facility] IMG OUTSIDE IMG 2013 [place] [address] Joni Cortez MD [address] [place] [phone] [email or web address] Social History Tobacco Use Types Packs/Day Years [...] (No Interpretation) (11/04/2012 12:00 AM EDT) Narrative [facility] IMG INTERFACES - 05/24/2024 5:11 PM EST This study is for PACS storage only and not for interpretation. us Joni Cortez MD IMG OUTSIDE IMAGING W/OUT INTERPRETATION Final Result [facility] IMG INTERFACES documented in this encounter Visit Diagnoses Not on filedocumented in this encounter Additional Source Comments The information contained in this document represents components of the legal health record. It is not the complete legal health record.[facility]
--- OUTSIDE RECORDS SUMMARY | 2025-04-12 07:14 | XMS_ITS | Clinical Summary ---
Author Organization [facility] Address [address] [place] [phone] Phone Care Team Providers Care Plasterer Rough Name Role Phone Emili Riley MD Primary Care Provider Deena Celeste RESEARCH PROGRAM INTERN Unavailable [phone] Allergies Active Allergy Reactions Criticality Noted Date [...] VACCINE (#1) 2025 COVID-19 VACCINE (1 - 2024-2 6 season) 2025 RSV VACCINE (1 - 1-dose 75+ series) 2045 HEPATITIS A VACCINES Aged Out No long [...] topic Medical Devices Not on file Insurance [facility] HMO [facility] HMO Care Teams Plasterer Rough Relationship Specialty Start Date End Date Emili Riley MD [address] [place] [phone] PCP - General Internal Medicine 03/02/24 Deena Celeste CNP [address] [place] [phone] [email or web address] Nurse Practitioner 05/25/24 Additional Source Comments The information contained in this document represents components of the legal health record. It is not the complete legal health record.[facility]
[2025-04-12 08:52] LABS: Albumin Level 4.5 g/dL (3.5-5.0); Calcium 9.0 mg/dL (8.4-10.2)
[2025-04-12 09:17] LABS: Prostate Specific Antigen 22.33 ng/mL (<0.05-4.0)
[2025-04-12 09:34] LABS: Parathyroid Hormone Intact 18.2 pg/mL (8.7-77.1)
[2025-04-13 14:08] LABS: Calcium, Ionized 5.1 mg/dL (4.7-5.5)
== END 2025-04-12 07:13 | disposition home or self-care (01) ==
LOC: HO.LAB 07:12
PROVIDERS: Absent Provider Physician Assistant; PCP Internal Medicine; Visit Provider Student in an Organized Health Care Education/Training Program
DX: Z12.5 Encounter for screening for malignant neoplasm of prostate (principal); E21.3 Hyperparathyroidism, unspecified; E31.21 Multiple endocrine neoplasia [MEN] type I; R97.20 Elevated prostate specific antigen [PSA]
CPT/HCPCS: 36415; 82040; 82310; 82330; 83970; 84153

== ENCOUNTER 2025-04-29 11:21 | Outpatient (REF) | payer OTHER, SELFPAY ==
--- OUTSIDE RECORDS SUMMARY | 2012-11-04 | XMS_ITS | Encounter Summary ---
Author Organization [facility] Address [address] [facility] [address] [place] [phone] Phone Care Team Providers Care Credit Assessment Analyst Name Role Phone Unavailable Primary Care Provider Unavailabl e Encounter Details Date Type Department Care Team (Late st Contact Info) Description 11/04/2012 Hospital Encounter [facility] IMG OUTSIDE IMG [address] [place] [address] Joni Cortez MD [address] [place] [phone] [email or web address] Social History Tobacco Use Types Packs/Day [...] (No Interpretation) (11/04/2012 12:00 AM EDT) Narrative [facility] IMG INTERFACES - 05/24/2024 5:11 PM EST This study is for PACS storage only and not for interpretation. us Joni Cortez MD IMG OUTSIDE IMAGING W/OUT INTERPRETATION Final Result [facility] IMG INTERFACES documented in this encounter Visit Diagnoses Not on filedocumented in this encounter Additional Source Comments The information contained in this document represents components of the legal health record. It is not the complete legal health record.[facility]
--- OUTSIDE RECORDS SUMMARY | 2025-04-29 12:57 | XMS_ITS | Clinical Summary ---
Author Organization [facility] Address [address] [place] [address] Phone Care Team Providers Care Education Nurse Name Role Phone Emili Riley MD Primary Care Provider Deena Celeste FINE GRADE OPERATOR Unavailable [phone] Allergies Active Allergy Reactions Criticality Noted Date [...] Devices Not on file Insurance [facility] Address: [address] [address] Care Teams Education Nurse Relationship Specialty Start Date End Date Emili Riley MD [address] [place] [phone] PCP - General Internal Medicine 03/02/24 Deena Celeste CNP [address] [place] [phone] [email or web address] Nurse Practitioner 05/25/24 Additional Source Comments The information contained in this document represents components of the legal health record. It is not the complete legal health record.[facility]
[2025-04-29 13:10] LABS: Albumin Level 4.7 g/dL (3.5-5.0); Calcium 9.4 mg/dL (8.4-10.2)
[2025-04-29 13:20] LABS: Parathyroid Hormone Intact 24.1 pg/mL (8.7-77.1)
[2025-05-02 17:53] LABS: Calcium, Ionized 5.3 mg/dL (4.7-5.5)
== END 2025-04-29 11:22 | disposition home or self-care (01) ==
LOC: HO.LAB 11:21
PROVIDERS: PCP Internal Medicine; Visit Provider Student in an Organized Health Care Education/Training Program
DX: E31.21 Multiple endocrine neoplasia [MEN] type I (principal); E21.3 Hyperparathyroidism, unspecified
CPT/HCPCS: 36415; 82040; 82306; 82310; 82330; 83970

== ENCOUNTER → 2025-05-06 10:33 | Outpatient (REF) | payer OTHER, SELFPAY ==
--- OUTSIDE RECORDS SUMMARY | 2012-11-03 23:00 | XMS_ITS | Encounter Summary ---
Author Organization [facility] Address [address] [facility] [address] [place] [address] Phone Care Team Providers Care Molded Candles Wicker Name Role Phone Unavailable Primary Care Provider Unavailabl e Encounter Details Date Type Department Care Team (Late st Contact Info) Description 11/04/2012 Hospital Encounter [facility] OUTSIDE IMG [address] [place] [address] Joni Cortez MD [address] [place] [phone] [email or web address] Social History Tobacco Use Types Packs/Day Years Used Date Smoking Tobacco: Never Assessed Education Answer Date Recorded Are you interested in more education? Not on nico e 03/16/2024 Are you concerned about learning? Not on file 03/16/2024 No 03/16/2024 No 03/16/2024 Digital Access Answer Date Recorded No 03/16/2024 No 03/16/2024 Reliable internet access at home? Not on file 03/16/2024 Device with a working camera? Not on file Sex and Gender Information Value Date Recorded Sex Assigned at Male 12/21/2024 12:53 PM EDT Legal Sex Male 3:47 PM EDT Gender Identity Male 12/21/2024 12:53 PM EDT Sexual Orientation Straight 12/21/2024 12 :53 PM EDT documented as of this encounter Plan of Treatment Not on file documented as of this encounter Procedures Procedure Name Priority Date/Time Associated Diagnosis Comments CT ABDOMEN/PELVIS OUTSIDE (NO INTERPRETATION) Routine 11/04/2012 12:00 AM EDT documented in this encounter Results * CT Abdomen/Pelvis Outside (No Interpretation) (11/04/2012 12:00 AM EDT) Narrative [facility] IMG INTERFACES - 05/24/2024 5:11 PM EST This study is for PACS storage only and not for interpretation. us Joni Cortez MD IMG OUTSIDE IMAGING W/OUT INTERPRETATION Final Result [facility] IMG INTERFACES documented in this encounter Visit Diagnoses Not on filedocumented in this encounter Additional Source Comments The information contained in this document represents components of the legal health record. It is not the complete legal health record.[facility]
--- NOTE | ~2025-05-06 | NM_ITS ---
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 TECHNIQUE: A total body bone scan was performed following the intravenous administration of 23 mCi technetium 99m--MDP. COMPARISON: Correlation is made with a chest CT dated 01/17/2025. FINDINGS: There is mild symmetric uptake AC joints which is likely degenerative in nature. There is symmetric mild increased uptake involving the shafts of the bilateral tibiae which can be seen in the setting of hyperparathyroidism. No suspicious focal activity is seen. Specifically, no abnormal activity is seen in the left humeral neck, although the tiny sclerotic focus may be below the resolution of bone scanning. There is normal bilateral renal activity. NM/NM bone scan whole body IMPRESSION: No abnormal uptake is seen in the region of the left humeral neck to correspond to the abnormality noted on CT, suggestive of a bone island. This may be below the resolution of bone scanning, however. Electronically signed by: Joni Abbott MD 05/06/2025 02:[address] [facility]
--- OUTSIDE RECORDS SUMMARY | 2025-05-06 12:29 | XMS_ITS | Clinical Summary ---
Author Organization [facility] Address [address] [place] [address] Phone Care Team Providers Care Target Protection Specialist Name Role Phone Emili Riley MD Primary Care Provider Deena Celeste HELP DESK SUPPORT SPECIALIST Unavailable [phone] Allergies Active Allergy Reactions Criticality Noted Date [...] topic Medical Devices Not on file Insurance [facility] Address[facility] [address] [address] Care Teams Target Protection Specialist Relationship Specialty Start Date End Date Emili Riley MD [address] [place] [phone] PCP - General Internal Medicine 03/02/24 Deena Celeste CNP [address] [place] [phone] [email or web address] Nurse Practitioner 05/25/24 Additional Source Comments The information contained in this document represents components of the legal health record. It is not the complete legal health record.[facility]
== END ==
LOC: HO.NUCMED 10:33
PROVIDERS: PCP Internal Medicine; Visit Provider Student in an Organized Health Care Education/Training Program
DX: E31.21 Multiple endocrine neoplasia [MEN] type I (principal); M85.822 Other specified disorders of bone density and structure, left upper arm
CPT/HCPCS: 78306; A9503

== ENCOUNTER → 2025-05-06 10:35 | Outpatient (BNV) | payer OTHER, SELFPAY | PROVIDERS: PCP Internal Medicine; Visit Provider Radiology Diagnostic Radiology | DX: E31.21 Multiple endocrine neoplasia [MEN] type I (principal) | CPT/HCPCS: 78306 ==

== ENCOUNTER 2025-06-18 08:39 | Outpatient (REF) | payer OTHER, SELFPAY ==
--- OUTSIDE RECORDS SUMMARY | 2012-11-03 23:00 | XMS_ITS | Encounter Summary ---
Author Organization [facility] Address [address] [facility] [address] [place] [phone] Phone Care Team Providers Care Supervisor In Circuit Testing Name Role Phone Unavailable Primary Care Provider Unavailabl e Encounter Details Date Type Department Care Team (Late st Contact Info) Description 11/04/2012 Hospital Encounter [facility] IMG OUTSIDE IMG 2013 [place] [address] Joni Cortez MD [address] [place] [phone] [email or web address] – [email or web address] Social History Tobacco Use Types Packs/Day Years [...] (No Interpretation) (11/04/2012 12:00 AM EDT) Narrative [facility] IMG INTERFACES - 05/24/2024 5:11 PM EST This study is for PACS storage only and not for interpretation. us Joni Cortez MD IMG OUTSIDE IMAGING W/OUT INTERPRETATION Final Result [facility] IMG INTERFACES documented in this encounter Visit Diagnoses Not on filedocumented in this encounter Additional Source Comments The information contained in this document represents components of the legal health record. It is not the complete legal health record.[facility]
--- OUTSIDE RECORDS SUMMARY | 2025-06-18 08:41 | XMS_ITS | Clinical Summary ---
Author Organization [facility] Address [address] [place] [address] Phone Care Team Providers Care Metal Burnisher Name Role Phone Emili Riley MD Primary Care Provider Deena Celeste IRON PILER Unavailable [phone] Allergies Active Allergy Reactions Criticality Noted Date [...] topic Medical Devices Not on file Insurance [facility] Address: [address] [address] Care Teams Metal Burnisher Relationship Specialty Start Date End Date Emili Riley MD [address] [place] [phone] PCP - General Internal Medicine 03/02/24 Deena Celeste CNP [address] [place] [phone] [email or web address] Nurse Practitioner 05/25/24 Additional Source Comments The information contained in this document represents components of the legal health record. It is not the complete legal health record.[facility]
[2025-06-18 10:33] LABS: Albumin Level 4.5 g/dL (3.5-5.0); Calcium 8.1 mg/dL (8.4-10.2)
== END 2025-06-18 08:40 | disposition home or self-care (01) ==
LOC: HO.LAB 08:39
PROVIDERS: PCP Internal Medicine; Visit Provider Internal Medicine Endocrinology, Diabetes & Metabolism
DX: E31.21 Multiple endocrine neoplasia [MEN] type I (principal)
CPT/HCPCS: 36415; 82040; 82310

== ENCOUNTER 2025-06-27 16:41 | Outpatient (REF) | payer OTHER, SELFPAY ==
--- OUTSIDE RECORDS SUMMARY | 2012-11-03 23:00 | XMS_ITS | Encounter Summary ---
Author Organization [facility] Address [address] [facility] [address] [place] [address] Phone Care Team Providers Care Parcel Wrapper Name Role Phone Unavailable Primary Care Provider Unavailabl e Encounter Details Date Type Department Care Team (Late st Contact Info) Description 11/04/2012 Hospital Encounter [facility] IMG OUTSIDE IMG 2013 [place] [address] Joni Cortez MD [address] [place] [phone] [email or web address] – [email or web address] Social History Tobacco Use Types Packs/Day [...] (No Interpretation) (11/04/2012 12:00 AM EDT) Narrative [facility] IMG INTERFACES - 05/24/2024 5:11 PM EST This study is for PACS storage only and not for interpretation. us Joni Cortez MD IMG OUTSIDE IMAGING W/OUT INTERPRETATION Final Result [facility] IMG INTERFACES documented in this encounter Visit Diagnoses Not on filedocumented in this encounter Additional Source Comments The information contained in this document represents components of the legal health record. It is not the complete legal health record.[facility]
--- OUTSIDE RECORDS SUMMARY | 2025-06-27 18:04 | XMS_ITS | Clinical Summary ---
Author Organization [facility] Address [address] [place] [address] Phone Care Team Providers Care Steam Drier Operator Name Role Phone Emili Riley MD Primary Care Provider Deena Celeste TOUR COORDINATOR Unavailable [phone] Allergies Active Allergy Reactions Criticality Noted Date [...] Devices Not on file Insurance [facility] HMO [facility] HMO [facility] HMO Care Teams Steam Drier Operator Relationship Specialty Start Date End Date Emili Riley MD [address] [place] [phone] PCP - General Internal Medicine 03/02/24 Deena Celeste CNP [address] [place] [phone] [email or web address] Nurse Practitioner 05/25/24 Additional Source Comments The information contained in this document represents components of the legal health record. It is not the complete legal health record.[facility]
[2025-06-27 18:44] LABS: Albumin Level 4.8 g/dL (3.5-5.0); Calcium 9.4 mg/dL (8.4-10.2)
== END 2025-06-27 16:42 ==
LOC: HO.LAB 16:41
PROVIDERS: PCP Internal Medicine; Visit Provider Internal Medicine Endocrinology, Diabetes & Metabolism
DX: E21.3 Hyperparathyroidism, unspecified (principal)
CPT/HCPCS: 36415; 82040; 82310